=== PATIENT | male | born 1955 | race Caucasian/White ===

== ENCOUNTER 2017-04-01 13:18 | Emergency (ER) | payer MEDICARE ==
[2017-04-01 14:20] LABS: BASOPHILS # (AUTO) 0.1 10^3/uL (0.0-0.1); BASOPHILS % (AUTO) 0.5 %; EOSINOPHILS # (AUTO) 0.1 10^3/uL (0.0-0.7); EOSINOPHILS % (AUTO) 0.6 %; HCT - HEMATOCRIT 50.7 % (42.0-52.0); HGB - HEMOGLOBIN 17.2 g/dL (14.0-18.0); LYMPHOCYTES % (AUTO) 25.5 %; MEAN CORPUSCULAR HEMOGLOBIN 31.4 pg (27.0-31.0); MEAN CORPUSCULAR HGB CONC 33.9 g/dL (32.0-36.0); MEAN CORPUSCULAR VOLUME 92.7 fL (80.0-94.0); MEAN PLATELET VOLUME 10.1 fL (7.4-11.4); MONOCYTES # (AUTO) 0.7 10^3/uL (0.0-1.0); MONOCYTES % (AUTO) 5.7 %; NEUTROPHILS # (AUTO) 7.9 10^3/uL (1.5-6.6); NEUTROPHILS % (AUTO) 67.7 %; RED BLOOD COUNT 5.47 10^6/uL (4.70-6.10); RED CELL DISTRIBUTION WIDTH 15.2 % (12.0-15.0); UNCORRECTED WHITE BLOOD COUNT 11.6 x10^3/uL; WHITE BLOOD COUNT 11.6 x10^3/uL (4.8-10.8)
[2017-04-01] MEDS ORDERED: SODIUM CHLORIDE 0.9% 1,000 ML IV ONE (14:20)
[2017-04-01 14:30] LABS: ALBUMIN/GLOBULIN RATIO 1.4 (1.0-2.2); BILIRUBIN,TOTAL 0.6 mg/dL (0.2-1.0); CALCIUM 9.6 mg/dL (8.5-10.3); CREATININE 1.1 mg/dL (0.6-1.2); POTASSIUM 3.4 mmol/L (3.5-5.0); TOTAL PROTEIN 7.6 g/dL (6.7-8.2)
--- NOTE | 2017-04-01 14:31 | ED Physician Documentation ---
PD HPI CHEST PAIN - Stated complaint Stated Complaint: LIGHTHEAD - Chief complaint Chief Complaint: Cardiac - History obtained from History obtained from: Patient - History of Present Illness Timing - onset: Enter time (929), Today Timing - onset during: Other (after viagra and becoming armoruos) Timing - details: Abrupt onset, Now resolved Pain level max: 5 Pain level now: 0 Quality: Tightness, Sharp Location: Substernal, Left chest Radiation: Neck, Left upper extremity Improved by: No: Rest Associated symptoms: Shortness of air, Feeling faint / dizzy. No: Diaphoresis, Nausea, Vomiting Similar symptoms before: Has not had sx before Recently seen: Not recently seen - Additional information Additional information: 62-year-old male with a history of low testosterone started a new job in [place]. 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 He drove back home from [place] yesterday in a snowstorm and when he arrived at home today he took some Viagra and was about to get amorous with his when he developed some pain in his left chest radiating up into his neck and down his left arm. This episode lasted about 3 hours. He reports that he has been on the road for the last 20 hours [address] [employer]. Review of Systems Constitutional: denies: Fever, Chills, Myalgias, Fatigue Eyes: denies: Decreased vision Ears: reports: Loss of hearing. denies: Ear pain Nose: denies: Rhinorrhea / runny nose, Congestion Throat: denies: Sore throat Cardiac: reports: Chest pain / pressure. denies: Palpitations, Pedal edema, Calf pain Respiratory: reports: Dyspnea. denies: Cough, Wheezing GI: denies: Abdominal Pain, Nausea, Vomiting : denies: Dysuria, Frequency Skin: denies: Rash, Lesions Musculoskeletal: reports: Neck pain, Extremity pain. denies: Back pain, Joint pain Neurologic: denies: Generalized weakness, Focal weakness, Numbness PD PAST MEDICAL HISTORY - Past Medical History Cardiovascular: Hypertension, Angina, Murmur Respiratory: None Endocrine/Autoimmune: None GI: GERD, Hiatal hernia : None HEENT: Chronic hearing loss Psych: None Musculoskeletal: Osteoarthritis, Chronic back pain Derm: None - Past Surgical History Past Surgical History: Yes General: Colonoscopy Ortho: Knee replacement, Arthroscopic surgery, Spine surgery HEENT: Rhinoplasty - Present Medications Home Medications: Ambulatory Orders Medication Instructions Recorded Confirmed Acetaminophen [Tylenol] 325 mg PO Q6H PRN 10/17/12 10/24/14 Amlodipine Besylate 10 mg PO DAILY 10/17/12 10/24/14 Baclofen 10 mg PO BID 10/17/12 10/24/14 Cholecalciferol (Vitamin D3) 2,000 unit PO DAILY 10/17/12 10/24/14 [Vitamin D] Cholestyramine [Questran] 4 gm PO DAILY 10/17/12 10/24/14 Glucosamine HCl/Chondr Martins A Na 2 each PO DAILY 10/17/12 10/24/14 [Osteo Bi-Flex Caplet] Metoprolol Succinate [Toprol Xl] 25 mg PO BID 10/17/12 10/24/14 Omeprazole [PriLOSEC] 20 mg PO BID 10/17/12 10/24/14 Pravastatin Sodium [Pravachol] 40 mg PO DAILY 10/17/12 10/24/14 Tadalafil [Cialis] 5 mg PO DAILY 10/17/12 10/24/14 Temazepam 15 mg PO QPM PRN 10/17/12 10/24/14 oxyCODONE [Roxicodone] 15 mg PO Q4-6H PRN 10/17/12 10/24/14 Ibuprofen 800 mg PO TID 10/21/12 10/24/14 - Allergies Allergies/Adverse Reactions: Allergies Allergy/AdvReac Type Severity Reaction Status Date / Time ethyl alcohol Allergy Intermediate angry Verified 10/24/14 23:09 hydromorphone HCl * Allergy Intermediate violent Verified 10/24/14 23:09 [From Dilaudid] meperidine HCl * Allergy Intermediate angry Verified 10/24/14 23:09 [From Demerol] propoxyphene HCl * Allergy Intermediate angry Verified 10/24/14 23:09 [From Darvon] naproxen Allergy Unknown unknown Verified 10/24/14 23:09 - Social History Does the pt smoke?: No Smoking Status: Never smoker Does the pt drink ETOH?: Yes Does the pt have substance abuse?: No - Immunizations Immunizations are current?: No - POLST Patient has POLST: No PD ED PE NORMAL - Vitals Vital signs reviewed: Yes (hypesrtensive ) - General General: Alert and oriented X 3, No acute distress, Well developed/nourished, Other (62 y/o male appears physically fit and is hard of hearing ) - Neck Neck: Supple, no meningeal sign, No bony TTP - Cardiac Cardiac: RRR, Other (2/6 holosystolic murmer at LSB) - Respiratory Respiratory: No respiratory distress, Clear bilaterally - Abdomen Abdomen: Soft, Non tender - Back Back: No CVA TTP, No spinal TTP - Derm Derm: Normal color, Warm and dry, No rash - Extremities Extremities: No deformity - Neuro Neuro: Alert and oriented X 3, No motor deficit, No sensory deficit, Normal speech Eye Opening: Spontaneous Motor: Obeys Commands Verbal: Oriented GCS Score: 15 - Psych Psych: Normal mood, Normal affect Results - Vitals Vitals: Vital Signs - 24 hr 04/01/17 04/01/17 04/01/17 13:24 13:43 16:13 Temperature 37.2 C 36.9 C Heart Rate 83 84 62 Respiratory 20 20 18 Rate Blood Pressure 184/160 H 154/92 H 141/101 H O2 Saturation 97 96 96 Oxygen O2 Source Room air - EKG (time done) 1334 Rate: Rate (enter#) (77) Rhythm: NSR, LAE Ischemia: Q waves Compare to prior EKG: Unchanged from prior EKG (06-17-2013) Computer interpretation: Agree with computer - Labs Labs: Laboratory Tests 04/01/17 04/01/17 04/01/17 13:30 13:30 13:30 WBC 11.6 H RBC 5.47 Hgb 17.2 Hct 50.7 MCV 92.7 MCH 31.4 H MCHC 33.9 RDW 15.2 H Plt Count 271 MPV 10.1 Neut # 7.9 H Lymph # 3.0 [place] # 0.7 Eos # 0.1 Baso # 0.1 Absolute Nucleated RBC 0.00 Nucleated RBC % 0.0 D-Dimer Sodium 138 Potassium 3.4 L Chloride 103 Carbon Dioxide 24 Anion Gap 11.0 BUN 15 Creatinine 1.1 Estimated GFR (MDRD) 68 L Glucose 160 H Calcium 9.6 Total Bilirubin 0.6 AST 24 ALT 17 Alkaline Phosphatase 71 Troponin I < 0.04 Total Protein 7.6 Albumin 4.4 Globulin 3.2 Albumin/Globulin Ratio 1.4 Lipase 58 H 04/01/17 04/01/17 13:30 15:56 WBC RBC Hgb Hct MCV MCH MCHC RDW Plt Count MPV Neut # Lymph # [place] # Eos # Baso # Absolute Nucleated RBC Nucleated RBC % D-Dimer 253.6 Sodium Potassium Chloride Carbon Dioxide Anion Gap BUN Creatinine Estimated GFR (MDRD) Glucose Calcium Total Bilirubin AST ALT Alkaline Phosphatase Troponin I < 0.04 Total Protein Albumin Globulin Albumin/Globulin Ratio Lipase - Rads (name of study) 1 view chest Radiology: Prelim report reviewed (Impression: 1. No acute pneumonia or edema. 2. 8 mm nodule projecting lateral to the left hilum may reflect a nodule or vessel on end, recommend follow-up PA and lateral chest radiograph.), EMP read indepedently, See rad report Procedures - IVC sono (time) 1410 Bedside IVC sono: IVC measures (cm) (0.9), IVC collapsed c insp (cm) (complete) , Dehydration (aobut 1.5 liters down) PD MEDICAL DECISION MAKING - ED course Complexity details: reviewed old records, reviewed results, re-evaluated patient , considered differential, d/w patient, d/w family ED course: 62 y/o male with chest pain that is now resolved has had some cialis today and was dehydrated when he took this. He had symptoms of chest pain consistent with angina and this has now resolved. Fluid is replaced and enzymes are checked. His EKG today without symptoms is similar to a prior from 3 years ago. Departure - Departure Disposition: 01 Home, Self Care Clinical Impression: Angina pectoris without myocardial infarction, Dehydration Condition: Stable Instructions: ED Chest Pain Angina Stable, ED Dehydration Follow-Up: Terrence Anguiano MD [Primary Care Provider] - Comments: Today it appears your significantly dehydrated. Combination of the dehydration and use of the Viagra is contraindicated. Discharge Date/Time: 04/01/17 16:42
--- NOTE | 2017-04-01 14:48 | XRAY Preliminary Report ---
Exam: XR CHEST 1 VIEW IMPRESSION: 1. No acute pneumonia or edema. 2. 8 mm nodule projecting lateral to the left hilum may reflect a nodule or vessel on end, recommend follow-up PA and lateral chest radiograph. [facility] SITE ID: [id number]
--- NOTE | 2017-04-01 14:51 | XRAY Report ---
EXAM: CHEST RADIOGRAPHY EXAM DATE: 04/01/2017 02:28 PM. CLINICAL HISTORY: Chest pain. COMPARISON: None. TECHNIQUE: 1 view. FINDINGS: Lungs/Pleura: No consolidative process or focal pneumonia. There is a round 8 mm density projecting l ateral to the left hilum on the frontal radiograph. Mediastinum: The heart size is normal. There is mild aortic tortuosity. Other: None. IMPRESSION: 1. No acute pneumonia or edema. 2. 8 mm nodule projecting lateral to the left hilum may reflect a nodule or vessel on end, recommend follow-up PA and lateral chest radiograph. [facility] Referring Provider Line: [phone] SITE ID: [id number]
[2017-04-01 16:14] VITALS: BP 141/101
== END 2017-04-01 16:42 | disposition home or self-care (01) ==
LOC: ED 13:18
DX: I20.9 Angina pectoris, unspecified (principal); E86.0 Dehydration; R94.31 Abnormal electrocardiogram [ECG] [EKG]; I10 Essential (primary) hypertension; Z96.659 Presence of unspecified artificial knee joint
CPT/HCPCS: 36415; 71010; 80053; 83690; 84484; 85025; 85379; 93005; 96360; 99283; 99285

== ENCOUNTER 2017-04-04 15:14 | Outpatient (CLI) | payer MEDICARE ==
--- NOTE | 2017-04-05 19:45 | XRAY Report ---
DATE OF SERVICE: 04/04/2017 TWO-VIEW CHEST: 04/04/2017 CLINICAL INDICATION: Exertional chest pain, possible pulmonary nodule on ER film of 04/01/2017. FINDINGS: Frontal and lateral views of the chest demonstrate a normal cardiac silhouette. The circu mscribed 8 mm nodule adjacent to the left hilum is stable, and can be visualized in retrospect on thoracic spi ne films of 03/14/2008. As such, it is dismissably benign. No focal infiltrate, effusion, or pneumothorax is present. There may be a small hiatal hernia present. IMPRESSION: Circumscribed 8 mm nodule adjacent to the left hilum is stable from 2007, and may be con sidered benign. No evidence of acute cardiopulmonary disease. TD: 04/05/2017 09:57
== END 2017-04-04 15:15 | disposition home or self-care (01) ==
LOC: DI 15:14
PROVIDERS: ATTEND Family Medicine
DX: R91.1 Solitary pulmonary nodule (principal)
CPT/HCPCS: 71020

== ENCOUNTER 2017-04-19 10:59 | Outpatient (CLI) | payer MEDICARE, OTHER ==
--- NOTE | 2017-04-19 12:50 | CARDIAC PROCEDURE NOTE ---
DATE OF SERVICE: 04/19/2017 Physician: YSLVIA Andrews DATE OF SERVICE: 04/19/2017 PRIMARY CARE PHYSICIAN: Terrence Anguiano MD PROCEDURE: Cardiac treadmill stress test. PROCEDURE SYMPTOMS: Exertional chest pain. CARDIAC RISK FACTORS: Include age and hypertension. PREVIOUS CARDIAC PROCEDURES: No previous cardiac procedures. CLINICAL HISTORY: A 62-year-old male without known coronary artery disease. INITIAL RESTING VITAL SIGNS: Blood pressure 126/72, heart rate 65, height 69 inches, weight 200 pounds, BMI 29.5. PROCEDURE AND FINDINGS: The patient identity and date verified, consent signed. The patient held metoprolol with the last dose on 04/18/2017 in the morning. The patient performed treadmill exercise using a Adolfo protocol completing 9 minutes, 48 seconds and completing an estimated workload of 10.1 metabolic equivalents. Maximal blood pressure was 162/72 with a heart rate of 105 beats per minute or 66% of maximum predicted heart rate for age. The blood pressure response to exercise was within normal limits. The patient stopped because his titanium knee was locking up, and he estimated the maximal Florencio scale for rating perceived exertion as 16/20. The resting ECG demonstrated normal sinus rhythm with repolarization abnormality. There was no ST segment depression. There was a single PAC. FINAL IMPRESSIONS 1. Inadequate test due to failure to achieve 75% of maximum predicted heart rate for age. 2. Negative stress electrocardiogram for ischemia by electrocardiographic criteria. 3. Negative stress test clinically for angina. 4. Single PAC ectopy. 5. [place] [employer] functional class 1. TD: 04/19/2017 13:49
[2017-04-19 17:34] VITALS: BP 126/72
== END 2017-04-19 11:00 | disposition home or self-care (01) ==
LOC: DI 10:59
PROVIDERS: ATTEND Family Medicine
DX: R07.9 Chest pain, unspecified (principal); I10 Essential (primary) hypertension
CPT/HCPCS: 93017

== ENCOUNTER 2018-07-05 09:05 | Outpatient (CLI) | payer MEDICARE ==
[~2018-07-05 09:05] MED LIST: ALBUTEROL NEB 2.5 MG/3 ML INH ONE
--- NOTE | 2018-07-05 14:12 | XRAY Report ---
Reason: HEAVY SMOKER, RECENT ONSET OF DYSPNEA COUGH Procedure Date: 07/05/2018 Accession Number: [id number] / [id number] Procedure: XR - Chest 2 View X-Ray CPT Code: 96479 FULL RESULT: EXAM: CHEST RADIOGRAPHY EXAM DATE: 07/05/2018 09:10 AM. CLINICAL HISTORY: HEAVY SMOKER, RECENT ONSET OF DYSPNEA COUGH. COMPARISON: CHEST 2 VIEW PA/LAT 04/04/2017 3:50 PM XR THORACIC SPINE 3 VIEWS 03/14/2008 12:12 PM CHEST 1 VIEW 04/01/2017 2:19 PM. TECHNIQUE: 2 views. FINDINGS: Lungs/Pleura: No dense consolidation. No large effusion or pneumothorax. No pulmonary edema. Stable 8 mm nodular density adjacent to the left hilum, also present on 03/14/2008. Mediastinum: Heart and mediastinal contours are unremarkable. Other: None. IMPRESSION: No acute radiographic pulmonary abnormalities. [facility]
== END 2018-07-05 09:06 | disposition home or self-care (01) ==
LOC: DI 09:05
PROVIDERS: ATTEND Family Medicine
DX: R05 Cough (principal); R06.00 Dyspnea, unspecified; Z87.891 Personal history of nicotine dependence
CPT/HCPCS: 71046; 94060

== ENCOUNTER 2019-10-16 17:59 | Outpatient (CLI) | payer MEDICARE ==
[2019-10-16 20:25] LABS: ALBUMIN 4.4 g/dL (3.2-5.5); ALKALINE PHOSPHATASE 65 IU/L (42-121); ALT ALANINE AMINOTRANSFERASE 23 IU/L (10-60); AST ASPARTATE AMINOTRANSFERASE 20 IU/L (10-42); BUN - BLOOD UREA NITROGEN 19 mg/dL (6-20); CARBON DIOXIDE - CO2 27 mmol/L (21-32); CHLORIDE 103 mmol/L (101-111); CHOL/HDL RATIO 5.1 (<5.0); CHOLESTEROL 175 mg/dL; CREATININE 0.9 mg/dL (0.6-1.2); GLUCOSE 102 mg/dL (70-100); HDL CHOLESTEROL 34 mg/dL; LDL CHOLESTEROL,CALCULATED 117 mg/dL; LDL/HDL RATIO 3.4 (<3.6); SODIUM 137 mmol/L (135-145); TOTAL PROTEIN 6.6 g/dL (6.7-8.2); VLDL CHOLESTEROL 24 mg/dL
== END 2019-10-16 18:00 | disposition home or self-care (01) ==
LOC: LAB.S 17:59
PROVIDERS: ATTEND Family Medicine
DX: R68.89 Other general symptoms and signs (principal); I10 Essential (primary) hypertension
CPT/HCPCS: 36415; 80053; 80061; 83721; 84403

== ENCOUNTER 2020-02-26 19:56 | Emergency (ER) | payer MEDICARE ==
[2020-02-26] MEDS ORDERED: SODIUM CHLORIDE 0.9% 1,000 ML IV STA (20:28)
[2020-02-26] MEDS ORDERED: ONDANSETRON 4 MG/2 ML VIAL IVP STA (20:29)
[2020-02-26] MEDS ORDERED: ACETAMINOPHEN 325 MG TABLET PO STA (20:30)
--- NOTE | 2020-02-26 20:46 | ED Physician Documentation ---
History of Present Illness - Stated complaint Stated Complaint: FEVER,BODY PX - Chief complaint Chief Complaint: General - History obtained from History obtained from: Patient - Additonal information Additional information: 64-year-old man not on AC, with past medical history of osteoarthritis, high blood pressure, presents with generalized body aches for 2 days associated with weakness and moderate severity bifrontal headache that is nonradiating, gradually starting today, constant, aching. Patient fell down two stairs yesterday and hit his head secondary to weakness. He denies lightheadedness, chest pain, cough sob vomiting abd pain or diarrhea. Does have moderate severity nausea and subjective chills. States he feels like he has the flu. Review of Systems Ten Systems: 10 systems reviewed and negative Constitutional: reports: Fever, Chills, Myalgias, Fatigue Nose: denies: Rhinorrhea / runny nose, Congestion Throat: denies: Sore throat Cardiac: denies: Chest pain / pressure, Palpitations Respiratory: denies: Cough, Wheezing PD PAST MEDICAL HISTORY - Past Medical History Past Medical History: Yes Cardiovascular: Hypertension, Angina, Murmur Respiratory: None Endocrine/Autoimmune: None GI: GERD, Hiatal hernia : None HEENT: Chronic hearing loss Psych: None Musculoskeletal: Osteoarthritis, Chronic back pain Derm: None - Past Surgical History Past Surgical History: Yes General: Colonoscopy Ortho: Knee replacement, Arthroscopic surgery, Spine surgery, Other HEENT: Rhinoplasty - Present Medications Home Medications: Ambulatory Orders Medication Instructions Recorded Confirmed Acetaminophen [Tylenol] 325 mg PO Q6H PRN 10/17/12 10/24/14 Amlodipine Besylate 10 mg PO DAILY 10/17/12 10/24/14 Baclofen 10 mg PO BID 10/17/12 10/24/14 Cholecalciferol (Vitamin D3) 2,000 unit PO DAILY 10/17/12 10/24/14 [Vitamin D] Cholestyramine [Questran] 4 gm PO DAILY 10/17/12 10/24/14 Glucosamine/Chondr Martins A Sod [Osteo 2 each PO DAILY 10/17/12 10/24/14 Bi-Flex Caplet] Metoprolol Succinate [Toprol Xl] 25 mg PO BID 10/17/12 10/24/14 Omeprazole [PriLOSEC] 20 mg PO BID 10/17/12 10/24/14 Pravastatin Sodium [Pravachol] 40 mg PO DAILY 10/17/12 10/24/14 Tadalafil [Cialis] 5 mg PO DAILY 10/17/12 10/24/14 Temazepam 15 mg PO QPM PRN 10/17/12 10/24/14 oxyCODONE [Roxicodone] 15 mg PO Q4-6H PRN 10/17/12 10/24/14 Ibuprofen 800 mg PO TID 10/21/12 10/24/14 - Allergies Allergies/Adverse Reactions: Allergies Allergy/AdvReac Type Severity Reaction Status Date / Time ethyl alcohol Allergy Intermediate angry Verified 02/26/20 20:06 hydromorphone HCl * Allergy Intermediate violent Verified 02/26/20 20:06 [From Dilaudid] meperidine HCl * Allergy Intermediate angry Verified 02/26/20 20:06 [From Demerol] propoxyphene HCl * Allergy Intermediate angry Verified 02/26/20 20:06 [From Darvon] naproxen Allergy Unknown unknown Verified 02/26/20 20:06 - Social History Does the pt smoke?: No Smoking Status: Never smoker Does the pt drink ETOH?: Yes Does the pt have substance abuse?: No - Immunizations Immunizations are current?: No - POLST Patient has POLST: No PD ED PE NORMAL - Vitals Vital signs reviewed: Yes - General General: Alert and oriented X 3 - HEENT HEENT: Atraumatic, PERRL, EOMI - Neck Neck: No bony TTP - Cardiac Cardiac: RRR - Respiratory Respiratory: No respiratory distress, Clear bilaterally - Abdomen Abdomen: Normal bowel sounds, Non tender, Non distended - Male Male : Deferred - Rectal Rectal: Deferred - Back Back: No CVA TTP - Derm Derm: Normal color - Extremities Extremities: No deformity - Neuro Neuro: Alert and oriented X 3, director athletic 2-12 intact, No motor deficit, No sensory deficit, Normal speech, Other (ambulatory with shuffling gait) - Psych Psych: Normal mood, Normal affect Results - Vitals Vitals: Vital Signs - 24 hr 02/26/20 02/26/20 02/26/20 20:06 20:09 22:11 Temperature 36.6 C 36.6 C Heart Rate 78 78 55 L Respiratory 20 20 17 Rate Blood Pressure 150/103 H 150/103 H 156/87 H O2 Saturation 98 98 96 Oxygen O2 Source Room air - Labs Labs: Laboratory Tests 02/26/20 02/26/20 20:59 20:59 WBC 14.3 H RBC 4.59 L Hgb 15.0 Hct 43.2 MCV 94.1 H MCH 32.7 H MCHC 34.7 RDW 13.8 Plt Count 250 MPV 10.7 Neut # (Auto) 12.0 H Lymph # (Auto) 1.3 L [place] # (Auto) 0.8 Eos # (Auto) 0.0 Baso # (Auto) 0.0 Absolute Nucleated RBC 0.00 Nucleated RBC % 0.0 Sodium 136 Potassium 3.2 L Chloride 102 Carbon Dioxide 26 Anion Gap 8.0 BUN 18 Creatinine 0.8 Estimated GFR (MDRD) 97 Glucose 139 H Calcium 9.2 Total Bilirubin 0.8 AST 37 ALT 23 Alkaline Phosphatase 76 Total Protein 7.2 Albumin 4.2 Globulin 3.0 Albumin/Globulin Ratio 1.4 Lipase 20 L PD MEDICAL DECISION MAKING - ED course Complexity details: reviewed results, d/w patient, d/w family ED course: 64-year-old man presents status post fall yesterday reporting that he has been having difficulty walking for the past 2 days. Also with frontal headache, found to have subarachnoid hemorrhage on CT head. Discussed with Dr. Toribio Guzman, neurosurgeon at [facility].Plan to maintain patient SBP 120, give Keppra, and transfer via air per his recommendation. Patient aware and agreeable, and discussed with patient's brother in law Dorian Webb as well as son Naveen. - Critical Care Time(min): 30 Comments: I have personally performed a history, physical exam, and my own medical decision making. Upon my evaluation, this patient had a high probability of imminent or life- threatening deterioration due to subarachnoid hemorrhage, which required my direct attention, intervention, and personal management. I have personally provided 30 minutes of critical care time exclusive of time spent on separately billable procedures. Time includes review of laboratory data, radiology results, discussion with consultants, and monitoring for potential decompensation. Time Includes: Direct patient care, Reassess patient Data interpretation: Labs, Pulse ox Departure - Departure Disposition: 02 Transfer Acute Care Hosp Clinical Impression: Subarachnoid bleed, Headache, Head trauma, Fall (on) (from) other stairs and steps, initial encounter Condition: Stable
--- NOTE | 2020-02-26 20:57 | CT Report ---
PROCEDURE: HEAD WO INDICATIONS: headache, fall yesterday, unsteady gait TECHNIQUE: Noncontrast 4.5 mm thick angled axial sections acquired from the foramen magnum to the vertex. For r adiation dose reduction, the following was used: automated exposure control, adjustment of mA and/or kV according to patient size. COMPARISON: None. FINDINGS: Image quality: Excellent. CSF spaces: Basal cisterns are patent. No extra-axial fluid collections. Ventricles are normal in size and shape. Brain: Moderate volume subarachnoid hemorrhage within the subarachnoid spaces of both frontal lobes predominantly. No mass effect or midline shift. No CT evidence of acute intracranial infarct or signi ficant vasogenic edema. Skull and face: Calvarium and visualized facial bones are intact, without suspicious lesions. Sinuses: Visualized sinuses and mastoids are clear. IMPRESSION: Moderate volume subarachnoid hemorrhage within the subarachnoid spaces of both frontal l obes predominantly. Given the diffuse nature of the hemorrhage, trauma is the leading consideration. Findings are discussed with the Dr. Honeycutt at 8:55 PM on 02/26/2020. Reviewed by: Sheldon Ellis MD on 02/26/2020 8:56 PM PST Approved by: Sheldon Ellis MD on 02/26/2020 8:56 PM PST Station ID: [id number]
--- NOTE | 2020-02-26 21:02 | CT Report ---
PROCEDURE: CERVICAL SPINE WO INDICATIONS: Neck trauma, midline tenderness TECHNIQUE: Noncontrast 3 mm thick sections acquired from the skull base to the T4 level. Sagittal and coronal r eformats were then constructed. For radiation dose reduction, the following was used: automated exp osure control, adjustment of mA and/or kV according to patient size. COMPARISON: None. FINDINGS: Image quality: Excellent. Bones: Well-corticated ossific densities just overlying the C5, C6, and C7 spinous processes, likely remote avulsion fractures (jody trauma therapist's fracture) or ossification is interspinous ligament. No as sociated hemorrhage or edema. The fractures appear smoothly marginated and well corticated, not thoug ht to be acute in nature. Otherwise no fracture or dislocation. Extensive degenerative change. Visual ized superior ribs are intact. Soft tissues: Prevertebral soft tissues are normal in thickness. No paravertebral hematomas. No ap ical pneumothoraces. IMPRESSION: Well-corticated ossific densities at the tips of the spinous processes at C5, C6, C7, likely remote f racture fragments or more likely ossification of the supraspinous ligament. An acute avulsion fractur e cannot be strictly excluded, although is considered unlikely. An MRI would be useful in this regard if there is focal point tenderness or pain with either passive flexion or resistance to extension. Reviewed by: Sheldon Ellis MD on 02/26/2020 9:00 PM [facility] Approved by: Sheldon Ellis MD on 02/26/2020 9:00 PM [facility] Station ID: [id number]
[2020-02-26 21:03] LABS: BASOPHILS % (AUTO) 0.3 %; EOSINOPHILS % (AUTO) 0.3 %; LYMPHOCYTES # (AUTO) 1.3 10^3/uL (1.5-3.5); LYMPHOCYTES % (AUTO) 9.3 %; MEAN CORPUSCULAR HEMOGLOBIN 32.7 pg (27.0-31.0); MEAN CORPUSCULAR HGB CONC 34.7 g/dL (32.0-36.0); MEAN CORPUSCULAR VOLUME 94.1 fL (80.0-94.0); MEAN PLATELET VOLUME 10.7 fL (7.4-11.4); MONOCYTES # (AUTO) 0.8 10^3/uL (0.0-1.0); MONOCYTES % (AUTO) 5.8 %; NEUTROPHILS % (AUTO) 83.7 %; PLT - PLATELET COUNT 250 10^3/uL (130-450); RED BLOOD COUNT 4.59 10^6/uL (4.70-6.10); RED CELL DISTRIBUTION WIDTH 13.8 % (12.0-15.0); WHITE BLOOD COUNT 14.3 x10^3/uL (4.8-10.8)
[2020-02-26 21:17] LABS: ALBUMIN 4.2 g/dL (3.2-5.5); ALBUMIN/GLOBULIN RATIO 1.4 (1.0-2.2); BILIRUBIN,TOTAL 0.8 mg/dL (0.2-1.0); CALCIUM 9.2 mg/dL (8.5-10.3); CREATININE 0.8 mg/dL (0.6-1.2); TOTAL PROTEIN 7.2 g/dL (6.7-8.2)
[2020-02-26] MEDS ORDERED: NICARDIPINE HCL 25 MG in SODIUM CHLORIDE 0.9% 240 ML IV STA (21:32)
[2020-02-26] MEDS ORDERED: levETIRAcetam INJ 1,000 MG in SODIUM CHLORIDE 0.9% 100ML 100 ML IV STA (21:37)
[2020-02-26] MEDS ORDERED: NICARDIPINE HCL 25 MG/10 ML VIAL IV ONE (21:55)
[2020-02-26 22:12] VITALS: BP 156/87
[2020-02-26 22:22] LABS: C. PNEUMONIAE- RESP PCR PANEL NOT DETECTED
== END 2020-02-26 22:30 | disposition short-term general hospital (02) ==
LOC: ED 19:56
DX: I60.9 Nontraumatic subarachnoid hemorrhage, unspecified (principal); W10.9XXA Fall (on) (from) unspecified stairs and steps, initial encounter; I10 Essential (primary) hypertension
CPT/HCPCS: 36415; 70450; 72125; 80053; 83690; 85025; 87631; 96365; 96375; 99291; A9270; 0202U

== ENCOUNTER 2020-05-15 17:53 | Observation (INO) | payer MEDICARE ==
--- NOTE | 2020-05-15 18:36 | ED Physician Documentation ---
PD HPI ALTERED MENTAL STATUS - Stated complaint Stated Complaint: EVALUATION - Chief complaint Chief Complaint: Neuro - History obtained from History obtained from: Patient, Family - Additional information Additional information: 65-year-old gentleman brought in by his [id number]. He had a prolonged length of stay at [facility], went there on or about February 16 for a ruptured 10 mm aneurysm. He had a craniotomy and repair and was there until 4 days ago. He was released but has not been doing well. Much of the history is from the brother because the patient is confused. They have been having questions about what meds he supposed to be on they think he is taking most of them but there was confusion about valproic acid, he has not been receiving that because on the pill bottle that actually says divalproex, the patient is difficult to get a history from because he is deaf and altered. He was alert and oriented to person only. Review of Systems Unable to obtain: Confused PD PAST MEDICAL HISTORY - Past Medical History Cardiovascular: Hypertension, Angina, Murmur Respiratory: None Endocrine/Autoimmune: None GI: GERD, Hiatal hernia : None HEENT: Chronic hearing loss Psych: None Musculoskeletal: Osteoarthritis, Chronic back pain Derm: None - Past Surgical History Past Surgical History: Yes General: Colonoscopy Ortho: Knee replacement, Arthroscopic surgery, Spine surgery, Other HEENT: Rhinoplasty - Present Medications Home Medications: Ambulatory Orders Medication Instructions Recorded Confirmed Acetaminophen [Tylenol] 325 mg PO Q6H PRN 10/17/12 05/15/20 Baclofen 5 mg PO BID 10/17/12 05/15/20 Omeprazole [PriLOSEC] 20 mg PO BID 10/17/12 05/15/20 oxyCODONE [Roxicodone] 5 mg PO Q4-6H PRN 10/17/12 05/15/20 Aspirin [Aspirin EC] 81 mg PO DAILY 05/15/20 05/15/20 Gabapentin [Neurontin] 200 mg PO TID 05/15/20 05/15/20 Melatonin 6 mg PO HS 05/15/20 05/15/20 Metoprolol Tartrate [Lopressor] 12.5 mg PO BID 05/15/20 05/15/20 Pravastatin [Pravachol] 40 mg PO DAILY 05/15/20 05/15/20 QUEtiapine [SEROquel] 100 mg PO TID 05/15/20 05/15/20 Senna [Senokot] 17.2 mg PO HS PRN 05/15/20 05/15/20 Valproic Acid 500 mg PO DAILY 05/15/20 05/15/20 bisacodyL [Dulcolax] 5 mg PO DAILY 05/15/20 05/15/20 Diclofenac Sodium [Voltaren] 2 gm TOP BID PRN 05/16/20 05/16/20 - Allergies Allergies/Adverse Reactions: Allergies Allergy/AdvReac Type Severity Reaction Status Date / Time ethyl alcohol Allergy Intermediate angry Verified 02/26/20 20:06 hydromorphone HCl * Allergy Intermediate violent Verified 02/26/20 20:06 [From Dilaudid] meperidine HCl * Allergy Intermediate angry Verified 02/26/20 20:06 [From Demerol] propoxyphene HCl * Allergy Intermediate angry Verified 02/26/20 20:06 [From Darvon] naproxen Allergy Unknown unknown Verified 02/26/20 20:06 morphine Allergy Unknown Verified 05/15/20 18:15 - Social History Does the pt smoke?: No Smoking Status: Never smoker Does the pt drink ETOH?: Yes Does the pt have substance abuse?: No - Immunizations Immunizations are current?: No - POLST Patient has POLST: No PD ED PE NORMAL - Vitals Vital signs reviewed: Yes - General General: Other (He is alert and oriented to person only. He follows commands with miming or by written command with a white board. He cannot come up with the year, the date, or where he is.) - HEENT HEENT: PERRL, EOMI - Neck Neck: Supple, no meningeal sign, No bony TTP - Cardiac Cardiac: RRR, No murmur - Respiratory Respiratory: No respiratory distress, Clear bilaterally - Abdomen Abdomen: Normal bowel sounds, Soft, Non tender, Other (A lot of bruising on the abdomen, presumed from Lovenox injections while in the hospital.) - Back Back: No CVA TTP, No spinal TTP - Derm Derm: Normal color, Warm and dry - Extremities Extremities: No edema, No calf tenderness / cord - Neuro Neuro: No motor deficit, No sensory deficit, Normal speech, Other (Mildly tremulous but not overtly with asterixis or ataxia. No nystagmus.) Eye Opening: Spontaneous Motor: Obeys Commands Verbal: Confused GCS Score: 14 Results - Vitals Vitals: Vital Signs - 24 hr 05/15/20 05/15/20 05/15/20 18:10 18:14 20:14 Temperature 36.8 C 36.6 C Heart Rate 99 75 68 Respiratory 18 17 15 Rate Blood Pressure 142/87 H 142/87 H 109/72 O2 Saturation 99 97 99 05/15/20 22:00 Temperature 36.9 C Heart Rate 78 Respiratory 16 Rate Blood Pressure 121/77 O2 Saturation 95 Oxygen O2 Source Room air - EKG (time done) 1839 Rate: Rate (enter#) (71) Rhythm: NSR [place]: Normal Intervals: Normal [place] QRS: Normal Ischemia: Normal ST segments Computer interpretation: Agree with computer - Labs Labs: Laboratory Tests 05/15/20 05/15/20 05/15/20 09:19 19:05 19:05 WBC 7.3 RBC 3.93 L Hgb 12.6 L Hct 38.1 L MCV 96.9 H MCH 32.1 H MCHC 33.1 RDW 12.1 Plt Count 218 MPV 11.2 Neut # (Auto) 5.2 Lymph # (Auto) 1.5 [place] # (Auto) 0.5 Eos # (Auto) 0.1 Baso # (Auto) 0.0 Absolute Nucleated RBC 0.00 Nucleated RBC % 0.0 PT 13.8 H INR 1.3 H Sodium Potassium Chloride Carbon Dioxide Anion Gap BUN Creatinine Estimated GFR (MDRD) Glucose POC Whole Bld Glucose Calcium Phosphorus Magnesium Total Bilirubin AST ALT Alkaline Phosphatase Ammonia Total Protein Albumin Globulin Albumin/Globulin Ratio Urine Color Urine Clarity Urine pH Ur Specific [place] Urine Protein Urine Glucose (UA) Urine Ketones Urine Occult Blood Urine Nitrite Urine Bilirubin Urine Urobilinogen Ur Leukocyte Esterase Urine RBC Urine WBC Ur Squamous Epith Cells Urine Crystals Urine Bacteria Urine Culture Comments Nasal Adenovirus (PCR) Nasal B. parapertussis DNA (PCR) Nasal Coronavir 229E PCR Nasal Coronavir HKU1 PCR Nasal Coronavir NL63 PCR Nasal Coronavir OC43 PCR Nasal Enterovir/Rhinovir PCR Nasal Influenza B PCR Nasal Influenza A PCR Nasal Parainfluen 1 PCR Nasal Parainfluen 2 PCR Nasal Parainfluen 3 PCR Nasal Parainfluen 4 PCR Nasal RSV (PCR) Nasal B.pertussis DNA PCR Nasal C.pneumoniae (PCR) Bull Human Metapneumo PCR Nasal M.pneumoniae (PCR) Nasal SARS-CoV-2 (PCR) Urine Opiates Screen NEGATIVE Ur Oxycodone Screen POSITIVE H Urine Methadone Screen NEGATIVE Ur Propoxyphene Screen NEGATIVE Ur Barbiturates Screen NEGATIVE Valproic Acid Ur Tricyclics Screen POSITIVE H Ur Phencyclidine Scrn NEGATIVE Ur Amphetamine Screen NEGATIVE U Methamphetamines Scrn NEGATIVE U Benzodiazepines Scrn NEGATIVE Urine Cocaine Screen NEGATIVE U Cannabinoids Screen NEGATIVE Ethyl Alcohol 05/15/20 05/15/20 05/15/20 19:05 19:05 19:05 WBC RBC Hgb Hct MCV MCH MCHC RDW Plt Count MPV Neut # (Auto) Lymph # (Auto) [place] # (Auto) Eos # (Auto) Baso # (Auto) Absolute Nucleated RBC Nucleated RBC % PT INR Sodium 138 Potassium 4.0 Chloride 99 L Carbon Dioxide 26 Anion Gap 13.0 BUN 17 Creatinine 0.9 Estimated GFR (MDRD) 84 L Glucose 92 POC Whole Bld Glucose Calcium 9.5 Phosphorus 2.7 Magnesium 2.0 Total Bilirubin 1.0 AST 59 H ALT 31 Alkaline Phosphatase 77 Ammonia < 10.0 Total Protein 7.2 Albumin 3.7 Globulin 3.5 Albumin/Globulin Ratio 1.1 Urine Color Urine Clarity Urine pH Ur Specific [place] Urine Protein Urine Glucose (UA) Urine Ketones Urine Occult Blood Urine Nitrite Urine Bilirubin Urine Urobilinogen Ur Leukocyte Esterase Urine RBC Urine WBC Ur Squamous Epith Cells Urine Crystals Urine Bacteria Urine Culture Comments Nasal Adenovirus (PCR) Nasal B. parapertussis DNA (PCR) Nasal Coronavir 229E PCR Nasal Coronavir HKU1 PCR Nasal Coronavir NL63 PCR Nasal Coronavir OC43 PCR Nasal Enterovir/Rhinovir PCR Nasal Influenza B PCR Nasal Influenza A PCR Nasal Parainfluen 1 PCR Nasal Parainfluen 2 PCR Nasal Parainfluen 3 PCR Nasal Parainfluen 4 PCR Nasal RSV (PCR) Nasal B.pertussis DNA PCR Nasal C.pneumoniae (PCR) Bull Human Metapneumo PCR Nasal M.pneumoniae (PCR) Nasal SARS-CoV-2 (PCR) Urine Opiates Screen Ur Oxycodone Screen Urine Methadone Screen Ur Propoxyphene Screen Ur Barbiturates Screen Valproic Acid < 10.0 Ur Tricyclics Screen Ur Phencyclidine Scrn Ur Amphetamine Screen U Methamphetamines Scrn U Benzodiazepines Scrn Urine Cocaine Screen U Cannabinoids Screen Ethyl Alcohol < 5.0 05/15/20 05/15/20 05/15/20 19:05 19:07 19:19 WBC RBC Hgb Hct MCV MCH MCHC RDW Plt Count MPV Neut # (Auto) Lymph # (Auto) [place] # (Auto) Eos # (Auto) Baso # (Auto) Absolute Nucleated RBC Nucleated RBC % PT INR Sodium Potassium Chloride Carbon Dioxide Anion Gap BUN Creatinine Estimated GFR (MDRD) Glucose POC Whole Bld Glucose 77 Calcium Phosphorus Magnesium Total Bilirubin AST ALT Alkaline Phosphatase Ammonia Total Protein Albumin Globulin Albumin/Globulin Ratio Urine Color YELLOW Urine Clarity CLEAR Urine pH 6.0 Ur Specific [place] >=1.030 H Urine Protein NEGATIVE Urine Glucose (UA) NEGATIVE Urine Ketones >=80 H Urine Occult Blood NEGATIVE Urine Nitrite NEGATIVE Urine Bilirubin NEGATIVE Urine Urobilinogen 0.2 (NORMAL) Ur Leukocyte Esterase NEGATIVE Urine RBC None Seen Urine WBC 0-3 Ur Squamous Epith Cells NONE SEEN Urine Crystals 3-5 Triple Phosphate Urine Bacteria None Seen Urine Culture Comments NOT INDICATED Nasal Adenovirus (PCR) NOT DETECTED Nasal B. parapertussis DNA (PCR) NOT DETECTED Nasal Coronavir 229E PCR NOT DETECTED Nasal Coronavir HKU1 PCR NOT DETECTED Nasal Coronavir NL63 PCR NOT DETECTED Nasal Coronavir OC43 PCR NOT DETECTED Nasal Enterovir/Rhinovir PCR NOT DETECTED Nasal Influenza B PCR NOT DETECTED Nasal Influenza A PCR NOT DETECTED Nasal Parainfluen 1 PCR NOT DETECTED Nasal Parainfluen 2 PCR NOT DETECTED Nasal Parainfluen 3 PCR NOT DETECTED Nasal Parainfluen 4 PCR NOT DETECTED Nasal RSV (PCR) NOT DETECTED Nasal B.pertussis DNA PCR NOT DETECTED Nasal C.pneumoniae (PCR) NOT DETECTED Bull Human Metapneumo PCR NOT DETECTED Nasal M.pneumoniae (PCR) NOT DETECTED Nasal SARS-CoV-2 (PCR) NOT DETECTED Urine Opiates Screen Ur Oxycodone Screen Urine Methadone Screen Ur Propoxyphene Screen Ur Barbiturates Screen Valproic Acid Ur Tricyclics Screen Ur Phencyclidine Scrn Ur Amphetamine Screen U Methamphetamines Scrn U Benzodiazepines Scrn Urine Cocaine Screen U Cannabinoids Screen Ethyl Alcohol - Rads (name of study) CT Head Radiology: EMP read contemporaneously (S/P clipping, no hemorrhage, Left frontal extradural foci of gas of uncertain chronicity) 1v chext Radiology: EMP read contemporaneously (hypoareation with poss RLL PNA) PD MEDICAL DECISION MAKING - ED course ED course: Discharge summary from [facility] dated May 12 of this year received and reviewed. Hospital course was complicated by vasospasm and need for pressors, UTI, EVD and craniotomy. He had bifrontal craniotomy and orbital frontal craniotomy with clipping of the aneurysm on February 26. He did have cardiac arrest during the surgery with EVD placement. Subsequently had angioplasty of both MCAs and ICAs. Redo craniotomy on March 12. Had severe delirium and agitation trouble with swallowing. Call out to [facility] to discuss presentation and CT findings. Care ot Dr Honeycutt at shift change pending a call back. Departure - Departure Disposition: ED Place in Observation Clinical Impression: Ruptured aneurysm of intracranial artery, Delirium, Non compliance w medication regimen Altered mental status Qualifiers: Altered mental status type: delirium Qualified Code(s): R41.0 - Disorientation, unspecified Condition: Stable Discharge Date/Time: 05/16/20 00:50
[2020-05-15 19:19] LABS: BASOPHILS % (AUTO) 0.4 %; EOSINOPHILS # (AUTO) 0.1 10^3/uL (0.0-0.7); HGB - HEMOGLOBIN 12.6 g/dL (14.0-18.0); LYMPHOCYTES # (AUTO) 1.5 10^3/uL (1.5-3.5); LYMPHOCYTES % (AUTO) 20.3 %; MEAN CORPUSCULAR HEMOGLOBIN 32.1 pg (27.0-31.0); MEAN CORPUSCULAR HGB CONC 33.1 g/dL (32.0-36.0); MEAN CORPUSCULAR VOLUME 96.9 fL (80.0-94.0); MEAN PLATELET VOLUME 11.2 fL (7.4-11.4); MONOCYTES # (AUTO) 0.5 10^3/uL (0.0-1.0); MONOCYTES % (AUTO) 6.5 %; NEUTROPHILS # (AUTO) 5.2 10^3/uL (1.5-6.6); NEUTROPHILS % (AUTO) 71.4 %; PLT - PLATELET COUNT 218 10^3/uL (130-450); RED BLOOD COUNT 3.93 10^6/uL (4.70-6.10); RED CELL DISTRIBUTION WIDTH 12.1 % (12.0-15.0); WHITE BLOOD COUNT 7.3 x10^3/uL (4.8-10.8)
[2020-05-15 19:24] LABS: MUDS CUTOFF CONCENTRATIONS CUTOFF CONC BELOW:
[2020-05-15 19:28] LABS: INR 1.3 (0.8-1.2); PT - PROTHROMBIN TIME 13.8 secs (9.9-12.6)
[2020-05-15 19:34] LABS: ALBUMIN 3.7 g/dL (3.2-5.5); ALBUMIN/GLOBULIN RATIO 1.1 (1.0-2.2); ALKALINE PHOSPHATASE 77 IU/L (42-121); ALT ALANINE AMINOTRANSFERASE 31 IU/L (10-60); AST ASPARTATE AMINOTRANSFERASE 59 IU/L (10-42); BUN - BLOOD UREA NITROGEN 17 mg/dL (6-20); CALCIUM 9.5 mg/dL (8.5-10.3); CARBON DIOXIDE - CO2 26 mmol/L (21-32); CHLORIDE 99 mmol/L (101-111); CREATININE 0.9 mg/dL (0.6-1.2); GLUCOSE 92 mg/dL (70-100); PHOSPHORUS 2.7 mg/dL (2.5-4.6); TOTAL PROTEIN 7.2 g/dL (6.7-8.2)
--- NOTE | 2020-05-15 19:38 | CT Report ---
PROCEDURE: HEAD WO INDICATIONS: ams TECHNIQUE: Noncontrast 4.5 mm thick angled axial sections acquired from the foramen magnum to the vertex. For r adiation dose reduction, the following was used: automated exposure control, adjustment of mA and/or kV according to patient size. COMPARISON: 02/26/2020 FINDINGS: Image quality: Excellent. CSF spaces: Basal cisterns are patent. Ventricles are normal in size and shape. No intraventricula r hemorrhage. Brain: There is been interval aneurysm clipping of probable anterior cerebral or GÓMEZ aneurysm. With new streak artifact from aneurysm clips present in the bifrontal regions. The bifrontal dural patch i s present and trace amounts of extradural gas are seen. There is encephalomalacia right frontal regio n extending from the right frontal vertex julius hole to the lateral ventricle, potentially drain tract . No midline shift. No intracranial masses or hemorrhage. Figueroa-white matter interface is normal. Skull and face: Bifrontal craniotomy and surgical fixation changes are present. There is a julius hole in the right frontal bone at the vertex. Sinuses: Mucosal thickening of the right sphenoid sinus and opacification of the frontal sinuses, mos t likely iatrogenic. IMPRESSION: 1. Status post anterior circulation, possibly GÓMEZ or anterior cerebral aneurysm clipping with expecte d surgical changes. 2. No evidence of recurrent hemorrhage. 3. Left frontal extradural foci of gas of uncertain chronicity, potentially absorbed from prior surge ry versus indicative of communication with sinus cavities. Correlation with prior postsurgical scans is recommended. Reviewed by: Yesenia Lopez MD on 05/15/2020 7:36 PM PST Approved by: Yesenia Lopez MD on 05/15/2020 7:36 PM PST Station ID: [id number]
[2020-05-15 19:39] LABS: AMPHETAMINE SCREEN,URINE NEGATIVE (NEGATIVE); BENZODIAZEPINES SCREEN, URINE NEGATIVE (NEGATIVE); COCAINE SCREEN URINE NEGATIVE (NEGATIVE); METHADONE SCREEN, URINE NEGATIVE (NEGATIVE); METHAMPHETAMINES SCREEN, URINE NEGATIVE (NEGATIVE); OPIATE SCREEN, URINE NEGATIVE (NEGATIVE); OXYCODONE SCREEN, URINE POSITIVE (NEGATIVE); PROPOXYPHENE SCREEN, URINE NEGATIVE (NEGATIVE); TRICYCLIC ANTIDEPRESSANT,URINE POSITIVE (NEGATIVE)
--- NOTE | 2020-05-15 19:40 | XRAY Report ---
PROCEDURE: Chest 1 View X-Ray INDICATIONS: Hypoxemia TECHNIQUE: One view of the chest was acquired. COMPARISON: 07/05/2018 FINDINGS: Surgical changes and devices: None. Lungs and pleura: No pleural effusions or pneumothorax. Lung volumes are lower. There is minor hazy alveolar opacity is seen in the right lower lung field without dense consolidation.. Mediastinum: Mediastinal contours appear normal. Heart size is normal. Bones and chest wall: No suspicious bony lesions. Overlying soft tissues appear unremarkable. IMPRESSION: 1. Low lung volumes crowd lung markings. 2. Despite this, there may be mild right lower lung alveolar opacity. Correlate with physical exam fi ndings. Reviewed by: Yesenia Lopez MD on 05/15/2020 7:38 PM PST Approved by: Yesenia Lopez MD on 05/15/2020 7:38 PM PST Station ID: [id number]
[2020-05-15 19:45] LABS: VALPROIC ACID (DEPAKOTE) < 10.0 ug/mL
[2020-05-15 20:15] LABS: C. PNEUMONIAE- RESP PCR PANEL NOT DETECTED
[2020-05-15] MEDS ORDERED: oxyCODONE 5 MG TABLET PO STA (22:07)
--- NOTE | 2020-05-15 22:09 | ED Physician Documentation ---
ED Addendum - Addendum Addendum: 05/15/20 22:08 Patient endorsed to me by Dr. Jay awaiting callback from [facility] for possible admission in setting of hydrocephalus. Patient in no acute distress, requesting his scheduled pain medication for his chronic back pain. will continue to monitor. 05/15/20 23:13 d/w [facility] neurosurgeon Dr. Zohaib Mehta who reviewed patient chart, prior images, and ct from today. Patient had a CT in March with similar ventricular dilation that has improved today slightly. A couple days later he had an LP with opening pressure of 15. He had Intermittent delirium during his 2-month hospital stay and was placed on quetiapine and valproate by psychiatry while inpatient. In light of this, Dr. Mehta has low suspicion for hydrocephalus at this time. We will plan to admit to our hospital, restart meds, and monitor him and will reconsult as needed if altered mental status does not improve. 05/15/20 23:16 Diagnosis: 1. altered mental status 2 ruptured aneurysm of intracranial artery. 05/15/20 23:17
[2020-05-15] MEDS ORDERED: ONDANSETRON 4 MG/2 ML VIAL IVP PRN (23:14)
[2020-05-15] MEDS ORDERED: SODIUM CHLORIDE FLUSH 0.9% 10 ML SYRINGE IVP PRN (23:14)
[2020-05-15] MEDS ORDERED: ACETAMINOPHEN 325 MG TABLET PO PRN (23:14)
[2020-05-15 23:19] LABS: GLUCOSE, URINE (UA) NEGATIVE (NEGATIVE); KETONES,URINE (UA) >=80 mg/dL (NEGATIVE); LEUKOCYTE ESTERASE, URINE NEGATIVE (NEGATIVE); NITRITE,URINE NEGATIVE (NEGATIVE); OCCULT BLOOD,URINE NEGATIVE (NEGATIVE); PROTEIN,URINE NEGATIVE (NEGATIVE); UROBILINOGEN,URINE 0.2 (NORMAL) E.U./dL (NORMAL)
--- NOTE | 2020-05-15 23:28 | HISTORY & PHYSICAL EXAMINATION ---
Chief Complaint - Chief Complaint Chief Complaint: Intermittent weakness and confusion History of Present Illness - Admitted From Admitted From:: Home - History Obtained From Records Reviewed: Yes History obtained from: Patient, Family, ER Physician, EMR, DC summary from [facility] Exam Limitations: Patient is deaf. 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 During his stay, he underwent 2 craniotomies as well as angioplasty of bilateral MCAs and ICAs. His hospital course was complicated by delirium and dysphagia. He did require a PEG tube briefly which was removed prior to discharge and he is now on a pured diet. He was seen by psychiatry while inpatient for his delirium and was started on Seroquel and valproic acid. His delirium had improved and he was discharged home on the with recommendation of continuing outpatient physical therapy, Occupational Therapy, speech therapy. The patient had declined rehab. Today he presents from home for unclear reasons. His mjbpmet-dd-nnh tells me that the patient fell at home today but did not hit his head to his knowledge. He states the patient is supposed to be using a walker or cane but he is quite stubborn does not always use one of these devices for ambulation. He states that patient always has a tremor which has been present since his surgical interventions. Patient has not been taking the valproic acid as the medication they received from the pharmacy had a different name and so they were unsure whether it was the correct medication or not. The patient has been managing his own medications and he states that he has been taking them although his dgsgxvh-qy-yfy believes he may be missing some doses. The patient reportedly wrote on his white board today that he wanted to go to the hospital and so his yuvikit-mq-aym brought him here. At my evaluation, the patient knows he is at the hospital but he believes it is 2019. His brother tells me that he is still confused with the year since he was hospitalized for the past 3 months. The patient clearly states that he does not want any more surgical interventions and he believes that he is fine. The patient denies fever, headache, change in vision, chest pain, dyspnea, cough abdominal pain, numbness, tingling, dysuria. He reports no focal weaknesses. He tells me he has been taking all of his medications. In the emergency department, he was found to be afebrile and hemodynamically stable. His labs were unremarkable. Urinalysis was not suggestive of infection. Ammonia was normal. Valproic acid was less than 10. Urine t oxicology screen was positive for tricyclics and oxycodone. He underwent a CT of the head which showed postsurgical changes. This CT scan was reviewed by [facility] neurosurgery who stated that this actually appeared improved compared to his prior imaging and they do not believe that this would explain any of his potential change in mental status. Given the above findings, medicine was consulted for admission. I did discuss goals of care with the patient and he states he has a living will which states he is a DNR. History - Past Medical History Cardiovascular: reports: Hypertension, Angina, Murmur Respiratory: reports: None Neuro: reports: Other (History of subarachnoid hemorrhage secondary to ruptured pericallosal aneurysm.) Endocrine/Autoimmune: reports: None GI: reports: GERD, Hiatal hernia : reports: None HEENT: reports: Chronic hearing loss Psych: reports: None Musculoskeletal: reports: Osteoarthritis, Chronic back pain Derm: reports: None MRSA Hx?: No - Past Surgical History General: reports: Colonoscopy Ortho: reports: Knee replacement, Arthroscopic surgery, Spine surgery, Other Neuro: reports: Craniotomy HEENT: reports: Rhinoplasty - Family & Social History Family History Comment/Other: Patient reports no significant family history. His huxprli-lh-kuc tells me that the patient's father had diabetes. His mother had an unknown respiratory problem. Living arrangement: At home Living Situation: With family Social History Notes: The patient lives at home with his inltops-rl-rkp, Dorian. His over a year ago. The patient still smokes but does not drink alcohol. - POLST Patient has POLST: No Meds/Allgy - Home Medications Home Medications: Ambulatory Orders Medication Instructions Recorded Confirmed Acetaminophen [Tylenol] 325 mg PO Q6H PRN 10/17/12 05/15/20 Baclofen 5 mg PO BID 10/17/12 05/15/20 Omeprazole [PriLOSEC] 20 mg PO BID 10/17/12 05/15/20 oxyCODONE [Roxicodone] 5 mg PO Q4-6H PRN 10/17/12 05/15/20 Aspirin [Aspirin EC] 81 mg PO DAILY 05/15/20 05/15/20 Diclofenac Submicronized 1 mg PO BID 05/15/20 05/15/20 [Diclofenac] Gabapentin [Neurontin] 200 mg PO TID 05/15/20 05/15/20 Melatonin 6 mg PO HS 05/15/20 05/15/20 Metoprolol Tartrate [Lopressor] 12.5 mg PO BID 05/15/20 05/15/20 Pravastatin [Pravachol] 40 mg PO DAILY 05/15/20 05/15/20 QUEtiapine [SEROquel] 100 mg PO TID 05/15/20 05/15/20 Senna [Senokot] 17.2 mg PO HS PRN 05/15/20 05/15/20 Valproic Acid 500 mg PO DAILY 05/15/20 05/15/20 bisacodyL [Dulcolax] 5 mg PO DAILY 05/15/20 05/15/20 - Allergies Allergies/Adverse Reactions: Allergies Allergy/AdvReac Type Severity Reaction Status Date / Time ethyl alcohol Allergy Intermediate angry Verified 02/26/20 20:06 hydromorphone HCl * Allergy Intermediate violent Verified 02/26/20 20:06 [From Dilaudid] meperidine HCl * Allergy Intermediate angry Verified 02/26/20 20:06 [From Demerol] propoxyphene HCl * Allergy Intermediate angry Verified 02/26/20 20:06 [From Darvon] naproxen Allergy Unknown unknown Verified 02/26/20 20:06 morphine Allergy Unknown Verified 05/15/20 18:15 Review of Systems - Constitutional Constitutional: denies: Fever - Eyes Eyes: denies: Blurred vision, Vision loss - Cardiovascular Cariovascular: denies: Chest pain, Exertional dyspnea, Decr. exercise tolerance - Respiratory Respiratory: denies: Cough, SOB at rest, SOB with exertion - Gastrointestinal Gastrointestinal: denies: Abdominal pain - Genitourinary Genitourinary: denies: Dysuria, Urgency - Musculoskeletal Musculoskeletal: reports: Back pain. denies: Limited range of motion - Neurological Neurological: reports: Abnormal gait, Other (Tremor). denies: General weakness, Focal weakness, Headache, Numbness - All Other Systems All Other Systems: reports: Other (Review of systems was limited as communication was obtained via writing on white board as the patient is deaf.) Prior Level of Functionality: He is supposed be ambulating with a walker or cane at baseline. He will need outpatient physical therapy per the discharge summary from [facility]. The patient had declined rehab during that hospitalization. He manages his own medications per the klfnrwi-cl-vxy. Exam - Vital Signs Reviewed Vital Signs: Yes Vital Signs: Vital Signs x48h Temp Pulse Resp BP Pulse Ox 05/15/20 22:00 36.9 C 78 16 121/77 95 05/15/20 20:14 36.6 C 68 15 109/72 99 05/15/20 18:14 75 17 142/87 H 97 05/15/20 18:10 36.8 C 99 18 142/87 H 99 - Physical Exam General Appearance: positive: No acute distress, Alert Eyes Bilateral: positive: Normal inspection, Conjunctivae nml ENT: positive: ENT inspection nml Neck: positive: Nml inspection Respiratory: positive: No respiratory distress. negative: Wheezes, Rales Cardiovascular: positive: Regular rate & rhythm, Systolic murmur. negative: Tachycardia Abdomen: positive: Non-tender, No distention, Other (Multiple areas of ecchymosis over the abdomen.). negative: Tenderness Skin: positive: Warm, Dry Extremities: positive: Full ROM, No pedal edema Neurologic/Psychiatric: positive: Motor nml, Disoriented to time, Other (He is oriented to self and location. He believes it is 2020. He is able to communicate and recognize his vabtyhv-bd-qrj. He has excellent motor strength in all four extremities.). negative: Disoriented to person, Disoriented to place, Facial droop, Slurred/abnml speech Conclusion/Plan - Problem List (1) Delirium Conclusion/Plan: His presentation appears consistent with delirium that is waxing and waning. At this time, he does not appear to be overtly disoriented. He is oriented to self and location and recognizes his mznxheh-dc-jhv is able to provide me with a history regarding his who over a year ago. His hospital course was prolonged due to delirium/mood disorder while at [facility] and he has been on Seroquel and valproic acid. It is clear that he is not taking the valproic acid based off history and valproic acid level that was less than 10. CT of the head was obtained and reviewed by neurosurgery who stated that it was improved compared to prior imaging. I suspect the delirium may have been exacerbated at home due to noncompliance with his medications versus just the waxing and waning of the disease process. At this point in time, we will observe him overnight and resume his home Seroquel and valproic acid. I did discuss placement with the patient but he states he feels safe at home and does not want rehab. His okkmafc-co-dtn confirms the patient is quite stubborn at baseline and he declined rehab while at [facility] as well. He is scheduled to see physical therapy on Sunday and we will consider a physical therapy consult tomorrow if he has difficulty ambulating on his own with a cane or walker. (2) Ruptured aneurysm of intracranial artery Conclusion/Plan: He has a history of subarachnoid hemorrhage secondary to ruptured aneurysm. He underwent 2 craniotomies while at [facility] and was just discharged few days ago. CT the head was reviewed by neurosurgery and was improved compared to prior imaging. There was also no evidence of recurrent hemorrhage. We will continue him on aspirin and statin. He does need physical therapy and is scheduled to see them on Sunday on outpatient basis as he declined rehab in the past. As mentioned above, will assess how he ambulates with a cane/walker and will consider physical therapy consult if necessary. (3) Hypertension Conclusion/Plan: His blood pressure is well controlled. We will continue metoprolol. 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 Continue pured diet. He will need outpatient speech therapy. - Lab Results Lab results reviewed: Yes Fish Bones: 05/16/20 05:45 05/16/20 05:45 - Diagnostic Imaging Results Diagnostic Imaging Results: positive: Final report reviewed Core Measures - Anticipated LOS I expect patient to be DC'd or transferred within 96 hours.: Yes - Issues Hospital Issues and Management Plan: 65-year-old male with a recent subarachnoid hemorrhage secondary to ruptured aneurysm who was hospitalized for approximately 3 months at [facility] presents with delirium/confusion after being discharged a few days ago. There is no clear etiology of this and he appears well to be close to his baseline at this time. We will observe him overnight and resume his medications. - DVT/VTE - Prophylaxis VTE/DVT Device ordered at admit?: Yes VTE/DVT Prophylaxis med ordered at admit?: Yes
[2020-05-15 23:30] LABS: CLARITY,URINE CLEAR (CLEAR)
[2020-05-15 23:31] LABS: BILIRUBIN,URINE NEGATIVE (NEGATIVE); ICTOTEST,URINE NEGATIVE
[2020-05-15 23:37] LABS: BACTERIA,URINE None Seen /HPF (None Seen); CRYSTALS,URINE 3-5 Triple Phosphate /LPF; RBC,URINE None Seen /HPF (0-5); SQUAMOUS EPITHELIAL CELL,UR NONE SEEN (<= Few)
[2020-05-16] MEDS: SODIUM CHLORIDE FLUSH 0.9% 10 ML SYRINGE IVP SCH ×2 (00:58→08:07)
[2020-05-16] MEDS: GABAPENTIN 100 MG CAPSULE PO SCH ×2 (05:07→14:11)
[2020-05-16 05:54] LABS: BASOPHILS % (AUTO) 0.7 %; EOSINOPHILS # (AUTO) 0.1 10^3/uL (0.0-0.7); EOSINOPHILS % (AUTO) 1.8 %; LYMPHOCYTES # (AUTO) 1.8 10^3/uL (1.5-3.5); MEAN CORPUSCULAR HEMOGLOBIN 32.2 pg (27.0-31.0); MEAN CORPUSCULAR HGB CONC 33.5 g/dL (32.0-36.0); MEAN PLATELET VOLUME 10.5 fL (7.4-11.4); MONOCYTES # (AUTO) 0.5 10^3/uL (0.0-1.0); MONOCYTES % (AUTO) 7.9 %; NEUTROPHILS # (AUTO) 3.6 10^3/uL (1.5-6.6); NEUTROPHILS % (AUTO) 59.4 %; PLT - PLATELET COUNT 212 10^3/uL (130-450); RED BLOOD COUNT 3.73 10^6/uL (4.70-6.10); RED CELL DISTRIBUTION WIDTH 12.1 % (12.0-15.0)
[2020-05-16 06:03] LABS: CALCIUM 9.4 mg/dL (8.5-10.3); CREATININE 0.9 mg/dL (0.6-1.2)
[2020-05-16] MEDS ORDERED: POTASSIUM CHLORIDE 20 MEQ TABLET PO ONE (07:01)
--- NOTE | 2020-05-16 08:45 | PHARMACY PROGRESS NOTE ---
- Best Possible Medication History Admit Date and Time: 05/15/20 3271 Processed by: Pharmacy Medication History completed: Yes Patient Interview: Pt unable to participate Secondary Source(s): Pharmacy records, Insurance records, Previous admit records As the person ultimately responsible for medication therapy, providers are able to order a medication from an existing home medication list in [facility] via the "Reconcile Routine" prior to Confirmation of that medication by customer support representative. Such practice is discouraged except when the physician, in their clinical judgment, deems that a medical need exists for a medication without regard to previous use.
[2020-05-16] MEDS ORDERED: METOPROLOL TARTRATE 25 MG TABLET PO SCH (09:00)
[2020-05-16] MEDS ORDERED: VALPROATE 250 MG/5 ML SOLUTION UDC PO SCH (09:00)
[2020-05-16] MEDS ORDERED: PANTOPRAZOLE 40 MG TABLET PO SCH (09:00)
[2020-05-16] MEDS ORDERED: ASPIRIN EC 81 MG TABLET PO SCH (09:00)
[2020-05-16] MEDS ORDERED: BACLOFEN 10 MG TABLET PO SCH (09:00)
[2020-05-16] MEDS ORDERED: VALPROIC ACID 250 MG PO SCH (09:00)
[2020-05-16] MEDS ORDERED: QUEtiapine 100 MG TABLET PO SCH ×2 (09:00→21:00)
[2020-05-16] MEDS ORDERED: PRAVASTATIN 40 MG TABLET PO SCH (09:00)
--- NOTE | 2020-05-16 14:17 | Discharge Plan ---
Discharge Plan Problem Reviewed?: Yes Disposition: 01 Home, Self Care Condition: Stable Diet: Regular Activity Restrictions: Activity as Tolerated Shower Restrictions: No Driving Restrictions: Yes (no driving) Health Concerns: You had just been discharged from [facility] after being admitted there for 10 weeks due to a subarachnoid hemorrhage from ruptured aneurysm. Your vuzhrmq-fa-aqz, who moved in to help take care of you, felt that you were confused and not taking your medications appropriately. You are deaf and so communication is sometimes difficult because we have to write everything down on a white board. We reevaluated you in the emergency room and your CAT scan has changes from her previous surgery but no new changes. Your neurosurgeon at [facility] reviewed the CAT scan and feels that it is stable. There is no signs of infection. You do not have any toxins in your blood that we can find. We feel you are stable to go back home. Plan of Treatment: 1. Physical therapy work with you to reeducate you on the use of a walker and a cane. Please use a walker or a cane at home. 2. We have gone over your medication list with your otnbzbp-we-vqk. It is a correct list and we are asking you to please take medication as directed by the list and with the help of your delqicc-dm-drh. 3. Please follow the discharge follow-up instructions per [facility] dated May 18. You were to be weaned off your Seroquel and valproic acid. Suggest 2 to 4 weeks of being weaned off of them. You also need to see the neurosurgery department in 1 year after follow-up because of her aneurysm. You also are to resume physical, occupational, and speech therapy treatment. Care Goals: To safely stay at home. With your dogs. Assessment: Patient understands care goals but disagrees with how to get there. He would prefer that his zoilzeo-dr-wuq and family not be with him. But at the same time he is not safe to be at home alone. No Smoking: If you smoke, Please STOP! Call for help. Follow-up with: Terrence Anguiano MD [Primary Care Provider] -
[2020-05-16 14:58] VITALS: BP 134/81
--- NOTE | 2020-05-16 15:46 | DISCHARGE SUMMARY ---
"Discharge Summary Admit Date: 05/15/20 Discharge Date: 05/16/20 Discharging Provider: Gilma Hoyt MD Primary Care Provider: Terrence Anguiano MD Code Status: Do Not Attempt Resuscitation Condition at Discharge: Stable Discharge Disposition: 01 Home, Self Care - DIAGNOSES Discharge Diagnoses with Status of Each Condition: 1 delirium 2. History of subarachnoid hemorrhage 3. 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 Dysphagia following cerebrovascular infarction 5. Hypertension - HPI History of Present Illness: This is a 65-year-old old male with a past medical history significant for rece nt subarachnoid hemorrhage secondary to ruptured large pericallosal aneurysm who was hospitalized at [facility] from February until May 12 for complicated course. During his stay, he underwent 2 craniotomies as well as angioplasty of bilateral MCAs and ICAs. His hospital course was complicated by delirium and dysphagia. He did require a PEG tube briefly which was removed prior to discharge and he is now on a pured diet. He was seen by psychiatry while inpatient for his delirium and was started on Seroquel and valproic acid. His delirium had improved and he was discharged home on the with recommendation of continuing outpatient physical therapy, Occupational Therapy, speech therapy. The patient had declined rehab. Today he presents from home for unclear reasons. His auqkjaj-ea-miy tells me that the patient fell at home today but did not hit his head to his knowledge. He states the patient is supposed to be using a walker or cane but he is quite stubborn does not always use one of these devices for ambulation. He states that patient always has a tremor which has been present since his surgical interventions. Patient has not been taking the valproic acid as the medication they received from the pharmacy had a different name and so they were unsure whether it was the correct medication or not. The patient has been managing his own medications and he states that he has been taking them although his tulpbyv-kn-lbt believes he may be missing some doses. The patient reportedly wrote on his white board today that he wanted to go to the hospital and so his vwtxaog-ec-kkl brought him here. At my evaluation, the patient knows he is at the hospital but he believes it is 2020. His brother tells me that he is still confused with the year since he was hospitalized for the past 3 months. The patient clearly states that he does not want any more surgical interventions and he believes that he is fine. The patient denies fever, headache, change in vision, chest pain, dyspnea, cough abdominal pain, numbness, tingling, dysuria. He reports no focal weaknesses. He tells me he has been taking all of his medications. In the emergency department, he was found to be afebrile and hemodynamically stable. His labs were unremarkable. Urinalysis was not suggestive of infection. Ammonia was normal. Valproic acid was less than 10. Urine toxicology screen was positive for tricyclics and oxycodone. He underwent a CT of the head which showed postsurgical changes. This CT scan was reviewed by [facility] neurosurgery who stated that this actually appeared improved compared to his prior imaging and they do not believe that this would explain any of his potential change in mental status. Given the above findings, medicine was consulted for admission. I did discuss goals of care with the patient and he states he has a living will which states he is a DNR. History - Past Medical History Cardiovascular: reports: Hypertension, Angina, Murmur Respiratory: reports: None Neuro: reports: Other (History of subarachnoid hemorrhage secondary to ruptured pericallosal aneurysm.) Endocrine/Autoimmune: reports: None GI: reports: GERD, Hiatal hernia : reports: None HEENT: reports: Chronic hearing loss Psych: reports: None Musculoskeletal: reports: Osteoarthritis, Chronic back pain Derm: reports: None MRSA Hx?: No - Past Surgical History General: reports: Colonoscopy Ortho: reports: Knee replacement, Arthroscopic surgery, Spine surgery, Other Neuro: reports: Craniotomy HEENT: reports: Rhinoplasty - CONSULTS | PROCEDURES Procedures: CT of head with status post anterior circulation, possibly GÓMEZ or anterior cerebral aneurysm clipping with expected surgical changes. No evidence of recurrent hemorrhage. Left frontal extradural foci of gas of uncertain chronicity, potentially observed from prior surgery versus indicative of communication with sinus cavities. (Neurosurgery at [facility] says that this is a stable CT) chest x-ray shows low lung volumes with crowded lung markings. Despite this there might be a mild lower lung alveolar opacity. - HOSPITAL COURSE Hospital Course: The patient was placed in observation more to make sure that there was not an infection or other cause of his waxing and waning mental status. It became clear that there is a family dynamic between the yvamhim-tg-swg and this patient. The patient's sister, and sister's qplyjqq-hk-prb have all moved in to help him recover from a prolonged illness at [facility]. Social work spent a lot of time discussing the dynamics. Please refer to their notes. During his stay his white cell count was normal. His vitals remained normal. His temperature was normal. As such we think that there is no clinical indication to treat the abnormality that was read on the chest x-ray. The patient himself is oriented to person place and time. He was puzzled about why he was here. There was a slowing of communication because everything had to be written on a white board for him due to his deafness. But it was finally determined between social work and case management that he was able to go home. At discharge temperature was 36.5 pulse was 85 blood pressure 134/81 respirations 1895% on room air. He is 6 foot tall weighs 88 kg. He would rather carry his walker and move it over things and actually put the walker on the floor and use it. Physical therapy work with him on the appropriate use of walker and cane. Neck is supple. Lungs are clear. No respiratory distress. Benign abdomen. Very easily distractible and he had to really get him to focus on the white board. He gets anxious and unhappy when you ask him why he decli izzy inpatient rehab at [facility]. He was in no pain. He was able to independently go from supine to sitting and then standing using the handrails as well as no handrails. We reviewed the discharge plans from [facility]. They clearly state that he is to come off Seroquel and valproic acid. He can to stay off of valproic acid because he is been refusing to take it. And he can continue to taper the Seroquel. To follow-up with neurology/neurosurgery in a year for his aneurysm history. And they did recommend that he go with home health PT and OT. As well as speech therapy because of dysphagia. - ALLERGIES Allergies/Adverse Reactions: Allergies Allergy/AdvReac Type Severity Reaction Status Date / Time ethyl alcohol Allergy Intermediate angry Verified 02/26/20 20:06 hydromorphone HCl * Allergy Intermediate violent Verified 02/26/20 20:06 [From Dilaudid] meperidine HCl * Allergy Intermediate angry Verified 02/26/20 20:06 [From Demerol] propoxyphene HCl * Allergy Intermediate angry Verified 02/26/20 20:06 [From Darvon] naproxen Allergy Unknown unknown Verified 02/26/20 20:06 morphine Allergy Unknown Verified 05/15/20 18:15 - MEDICATIONS Home Medications: Ambulatory Orders Medication Instructions Recorded Confirmed Acetaminophen [Tylenol] 325 mg PO Q6H PRN 10/17/12 05/15/20 Baclofen 5 mg PO BID 10/17/12 05/15/20 Omeprazole [PriLOSEC] 20 mg PO BID 10/17/12 05/15/20 oxyCODONE [Roxicodone] 5 mg PO Q4-6H PRN 10/17/12 05/15/20 Aspirin [Aspirin EC] 81 mg PO DAILY 05/15/20 05/15/20 Gabapentin [Neurontin] 200 mg PO TID 05/15/20 05/15/20 Melatonin 6 mg PO HS 05/15/20 05/15/20 Metoprolol Tartrate [Lopressor] 12.5 mg PO BID 05/15/20 05/15/20 Pravastatin [Pravachol] 40 mg PO DAILY 05/15/20 05/15/20 QUEtiapine [SEROquel] 100 mg PO 0800,1500 05/15/20 05/16/20 Senna [Senokot] 17.2 mg PO HS PRN 05/15/20 05/15/20 Valproic Acid 500 mg PO DAILY 05/15/20 05/15/20 bisacodyL [Dulcolax] 5 mg PO DAILY PRN 05/15/20 05/15/20 Diclofenac Sodium [Voltaren] 2 gm TOP BID PRN 05/16/20 05/16/20 Quetiapine Fumarate [Seroquel] 400 mg PO QPM 05/16/20 05/16/20 - LABS Result Diagrams: 05/16/20 05:45 05/16/20 05:45"
== END 2020-05-16 17:00 | disposition home or self-care (01) ==
LOC: ED 17:53 → MS2 23:14
PROVIDERS: ADMIT Internal Medicine; ATTEND Specialist
DX: R41.0 Disorientation, unspecified (principal); I69.019 Unspecified symptoms and signs involving cognitive functions following nontraumatic subarachnoid hemorrhage; I69.091 Dysphagia following nontraumatic subarachnoid hemorrhage; I69.098 Other sequelae following nontraumatic subarachnoid hemorrhage; R26.89 Other abnormalities of gait and mobility; R25.1 Tremor, unspecified; I10 Essential (primary) hypertension; K21.9 Gastro-esophageal reflux disease without esophagitis; K44.9 Diaphragmatic hernia without obstruction or gangrene; F17.200 Nicotine dependence, unspecified, uncomplicated; G89.29 Other chronic pain; M54.9 Dorsalgia, unspecified; M19.90 Unspecified osteoarthritis, unspecified site; Z66 Do not resuscitate; Z96.659 Presence of unspecified artificial knee joint; R91.8 Other nonspecific abnormal finding of lung field; Z91.128 Patient's intentional underdosing of medication regimen for other reason; Z91.19 Patient's noncompliance with other medical treatment and regimen; Z79.891 Long term (current) use of opiate analgesic; Z79.82 Long term (current) use of aspirin; Z79.899 Other long term (current) drug therapy
CPT/HCPCS: 36415; 70450; 71045; 80048; 80053; 80164; 80306; 81001; 82140; 83735; 84100; 85025; 85610; 87631; 93005; 97161; 99285; A9270; G0378; G0480; J3490; 0202U; 80320; 87086

== ENCOUNTER 2020-07-02 14:14 | Emergency (ER) | payer MEDICARE ==
--- NOTE | 2020-07-02 15:09 | ED Physician Documentation ---
History of Present Illness - Stated complaint Stated Complaint: CHILLS/HEAD PX - Chief complaint Chief Complaint: General - Additonal information Additional information: 65-year-old male presents to the emergency department for evaluation of generalized malaise, myalgias fatigue that began yesterday. Unsure if he has had a fever. He denies vomiting or diarrhea. Intermittently he will have chest pain and a dry cough. He is a daily tobacco user. Pt has received COVID vaccination X2 Much of the history is obtained from the [id number]. This gentleman unfortunately had a large subarachnoid hemorrhage due to an aneurysm and was hos pitalized at [facility] from February until May 2020. Discharge summary from [facility] dated May 12 of this year received and reviewed. Hospital course was complicated by vasospasm and need for pressors, UTI, EVD and craniotomy. He had bifrontal craniotomy and orbital frontal craniotomy with clipping of the aneurysm on February 26. He did have cardiac arrest during the surgery with EVD placement. Subsequently had angioplasty of both MCAs and ICAs. Redo craniotomy on March 12. Had severe delirium and agitation trouble with swallowing. Pt was briefly admitted to this hospital in May with altered mentation but was discharged home when no signs of infection were found. The [id number] reports that intermittently he is confused or acts funny but sometimes he is back to normal. He says yesterday he was acting funny and did not speak right but today he seems to be speaking normally. [id number] has a difficult time elaborating on the symptom and seems frustrated with the care of patient Review of Systems Unable to obtain: Confused, Other (obtained from chart and brother in law) Constitutional: reports: Chills, Myalgias, Fatigue. denies: Fever Ears: reports: Loss of hearing ([place]; uses hearing aid) Nose: reports: Reviewed and negative Throat: reports: Reviewed and negative Cardiac: reports: Chest pain / pressure, Palpitations Respiratory: reports: Cough. denies: Dyspnea GI: reports: Constipation. denies: Abdominal Pain, Nausea, Vomiting, Diarrhea : denies: Dysuria, Frequency Skin: reports: Reviewed and negative Musculoskeletal: reports: Reviewed and negative Neurologic: reports: Generalized weakness, Confused. denies: Focal weakness, Numbness PD PAST MEDICAL HISTORY - Past Medical History Cardiovascular: Hypertension, Angina, Murmur Respiratory: None Neuro: Other Endocrine/Autoimmune: None GI: GERD, Hiatal hernia : None HEENT: Chronic hearing loss Psych: None Musculoskeletal: Osteoarthritis, Chronic back pain Derm: None - Past Surgical History Past Surgical History: Yes General: Colonoscopy Ortho: Knee replacement, Arthroscopic surgery, Spine surgery, Other Neuro: Craniotomy HEENT: Rhinoplasty - Present Medications Home Medications: Ambulatory Orders Medication Instructions Recorded Confirmed Acetaminophen [Tylenol] 325 mg PO Q6H PRN 10/17/12 07/02/20 Baclofen 5 mg PO BID 10/17/12 07/02/20 Omeprazole [PriLOSEC] 20 mg PO TID 10/17/12 07/02/20 oxyCODONE [Roxicodone] 10 mg PO Q4-6H PRN 10/17/12 07/02/20 Aspirin [Aspirin EC] 81 mg PO DAILY 05/15/20 07/02/20 Gabapentin [Neurontin] 200 mg PO TID 05/15/20 07/02/20 Melatonin 6 mg PO HS 05/15/20 07/02/20 Pravastatin [Pravachol] 40 mg PO DAILY 05/15/20 07/02/20 QUEtiapine [SEROquel] 100 mg PO 0800,1500 05/15/20 07/02/20 Senna [Senokot] 17.2 mg PO HS PRN 05/15/20 07/02/20 Valproic Acid 500 mg PO DAILY 05/15/20 07/02/20 Diclofenac Sodium [Voltaren] 2 gm TOP BID PRN 05/16/20 07/02/20 Quetiapine Fumarate [Seroquel] 200 mg PO QPM 05/16/20 07/02/20 Baclofen 5 mg PO BID 07/02/20 07/02/20 Ibuprofen [Motrin] 800 mg PO TID 07/02/20 07/02/20 - Allergies Allergies/Adverse Reactions: Allergies Allergy/AdvReac Type Severity Reaction Status Date / Time ethyl alcohol Allergy Intermediate angry Verified 07/02/20 14:17 hydromorphone HCl * Allergy Intermediate violent Verified 07/02/20 14:17 [From Dilaudid] meperidine HCl * Allergy Intermediate angry Verified 07/02/20 14:17 [From Demerol] propoxyphene HCl * Allergy Intermediate angry Verified 07/02/20 14:17 [From Darvon] naproxen Allergy Unknown unknown Verified 07/02/20 14:17 morphine Allergy Unknown Verified 07/02/20 14:17 - Social History Does the pt smoke?: No Smoking Status: Never smoker Does the pt drink ETOH?: Yes Does the pt have substance abuse?: No - Immunizations Immunizations are current?: No - POLST Patient has POLST: No PD ED PE EXPANDED - General General: Alert, No acute distress, Well developed/nourished - HEENT HEENT: PERRL - Cardiac Cardiac: Regular Rate, Regular Rhythm, Murmur Present, Radial strong equal, Cap refill < 2 sec - Respiratory Respiratory: Clear to ausultation katy. No: Distress - Abdomen Abdomen: Normal Bowel sounds. No: Tender to palpation - Back Back: Normal exam - Derm Derm: Normal color, Warm and dry - Neuro Neuro: Alert and Oriented X 3, CNII-XII intact - GCS Eye Opening: Spontaneous Motor: Obeys Commands Verbal: Oriented (answers question appropriately with paper and pen) Total: 15 Results - Vitals Vitals: Vital Signs - 24 hr 07/02/20 07/02/20 14:17 17:16 Temperature 36.7 C 36.6 C Heart Rate 88 74 Respiratory 16 18 Rate Blood Pressure 117/75 110/75 O2 Saturation 96 100 Oxygen O2 Source Room air - EKG (time done) 1504 Rate: Rate (enter#) (77) Rhythm: NSR [place]: Normal Intervals: Normal ND QRS: Normal Ischemia: Normal ST segments Compare to prior EKG: Unchanged from prior EKG Computer interpretation: Agree with computer - Labs Labs: Laboratory Tests 07/02/20 07/02/20 07/02/20 15:10 15:10 15:10 WBC 13.6 H RBC 4.12 L Hgb 12.7 L Hct 38.5 L MCV 93.4 MCH 30.8 MCHC 33.0 RDW 13.1 Plt Count 169 MPV 11.2 Neut # (Auto) 11.5 H Lymph # (Auto) 1.4 L [place] # (Auto) 0.6 Eos # (Auto) 0.0 Baso # (Auto) 0.0 Absolute Nucleated RBC 0.00 Nucleated RBC % 0.0 Sodium 141 Potassium 3.9 Chloride 106 Carbon Dioxide 25 Anion Gap 10.0 BUN 32 H Creatinine 1.0 Estimated GFR (MDRD) 75 L Glucose 82 Lactic Acid Calcium 9.4 Total Bilirubin 0.5 AST 20 ALT 20 Alkaline Phosphatase 76 Ammonia Troponin I High Sens 4.2 Total Protein 7.1 Albumin 4.0 Globulin 3.1 Albumin/Globulin Ratio 1.3 Lipase 21 L Urine Color Urine Clarity Urine pH Ur Specific [place] Urine Protein Urine Glucose (UA) Urine Ketones Urine Occult Blood Urine Nitrite Urine Bilirubin Urine Urobilinogen Ur Leukocyte Esterase Ur Microscopic Review Urine Culture Comments Last Dose Date Last Dose Time Urine Opiates Screen Ur Oxycodone Screen Urine Methadone Screen Ur Propoxyphene Screen Ur Barbiturates Screen Valproic Acid Ur Tricyclics Screen Ur Phencyclidine Scrn Ur Amphetamine Screen U Methamphetamines Scrn U Benzodiazepines Scrn Urine Cocaine Screen U Cannabinoids Screen 07/02/20 07/02/20 07/02/20 15:10 15:10 15:10 WBC RBC Hgb Hct MCV MCH MCHC RDW Plt Count MPV Neut # (Auto) Lymph # (Auto) [place] # (Auto) Eos # (Auto) Baso # (Auto) Absolute Nucleated RBC Nucleated RBC % Sodium Potassium Chloride Carbon Dioxide Anion Gap BUN Creatinine Estimated GFR (MDRD) Glucose Lactic Acid 1.1 Calcium Total Bilirubin AST ALT Alkaline Phosphatase Ammonia 29.5 Troponin I High Sens Total Protein Albumin Globulin Albumin/Globulin Ratio Lipase Urine Color Urine Clarity Urine pH Ur Specific [place] Urine Protein Urine Glucose (UA) Urine Ketones Urine Occult Blood Urine Nitrite Urine Bilirubin Urine Urobilinogen Ur Leukocyte Esterase Ur Microscopic Review Urine Culture Comments Last Dose Date NA Last Dose Time NA Urine Opiates Screen Ur Oxycodone Screen Urine Methadone Screen Ur Propoxyphene Screen Ur Barbiturates Screen Valproic Acid 13.9 Ur Tricyclics Screen Ur Phencyclidine Scrn Ur Amphetamine Screen U Methamphetamines Scrn U Benzodiazepines Scrn Urine Cocaine Screen U Cannabinoids Screen 07/02/20 15:11 WBC RBC Hgb Hct MCV MCH MCHC RDW Plt Count MPV Neut # (Auto) Lymph # (Auto) [place] # (Auto) Eos # (Auto) Baso # (Auto) Absolute Nucleated RBC Nucleated RBC % Sodium Potassium Chloride Carbon Dioxide Anion Gap BUN Creatinine Estimated GFR (MDRD) Glucose Lactic Acid Calcium Total Bilirubin AST ALT Alkaline Phosphatase Ammonia Troponin I High Sens Total Protein Albumin Globulin Albumin/Globulin Ratio Lipase Urine Color YELLOW Urine Clarity CLEAR Urine pH 5.0 Ur Specific [place] 1.020 Urine Protein NEGATIVE Urine Glucose (UA) NEGATIVE Urine Ketones NEGATIVE Urine Occult Blood NEGATIVE Urine Nitrite NEGATIVE Urine Bilirubin NEGATIVE Urine Urobilinogen 0.2 (NORMAL) Ur Leukocyte Esterase NEGATIVE Ur Microscopic Review NOT INDICATED Urine Culture Comments NOT INDICATED Last Dose Date Last Dose Time Urine Opiates Screen NEGATIVE Ur Oxycodone Screen POSITIVE H Urine Methadone Screen NEGATIVE Ur Propoxyphene Screen NEGATIVE Ur Barbiturates Screen NEGATIVE Valproic Acid Ur Tricyclics Screen POSITIVE H Ur Phencyclidine Scrn NEGATIVE Ur Amphetamine Screen NEGATIVE U Methamphetamines Scrn POSITIVE H U Benzodiazepines Scrn NEGATIVE Urine Cocaine Screen NEGATIVE U Cannabinoids Screen NEGATIVE - Rads (name of study) CXR Radiology: Final report received (no acute process) CT head Radiology: Final report received (Postsurgical changes related to GÓMEZ aneurysm clipping. No acute intracranial abnormality demonstrated.) PD MEDICAL DECISION MAKING - ED course Complexity details: reviewed old records, reviewed results, re-evaluated patient, considered differential, d/w patient ED course: 65-year-old male was brought to the emergency department for evaluation of a general complaint of not feeling well. He reports that since yesterday he has had subjective myalgias and chills. No fever or worrisome vital sign derangement here. He has received 2 COVID-19 vaccinations. History is difficult to obtain from the patient as he does have a cognitive D effect after an GÓMEZ aneurysm and subarachnoid hemorrhage that resulted in a lengthy hospitalization at [facility] in February and March 2020. Screening labs today show a mild leukocytosis. However there is no significant other abnormality in electrolytes or UA which shows no signs of infection. Chest x-ray shows no infection. His vital signs are essentially normal without fever. Neurologically he he has no focal neuro deficits but does use a cane for ambulation. His brother in law he reports that he is behaving and mentating at baseline. We did discuss that the urine drug screen was positive for methamphetamine and both patient and [id number] deny the possibility that he could have taken any. At this point he is stable for discharge home. Advised to get rest drink lots of fluids and return for worsening symptoms. Departure - Departure Disposition: 01 Home, Self Care Clinical Impression: Myalgia, Positive urine drug screen Fatigue Qualifiers: Fatigue type: unspecified Qualified Code(s): R53.83 - Other fatigue Condition: Stable Record reviewed to determine appropriate education?: Yes Comments: You are seen in the emergency department today for fatigue body aches and not feeling well. Your screening labs are essentially normal however your urine drug screen was positive for methamphetamine. If you are using methamphetamine I do advise you to stop. Your chest x-ray showed no signs of pneumonia and your head CT is stable with no new findings. It is likely that you have a viral illness causing the fatigue and body aches. I recommend you get plenty of rest and drink lots of fluids. If at any point you feel that your symptoms are worsening please return immediately to the ER. Discharge Date/Time: 07/02/20 17:30
[2020-07-02 15:16] LABS: MUDS CUTOFF CONCENTRATIONS CUTOFF CONC BELOW:
[2020-07-02 15:21] LABS: BASOPHILS % (AUTO) 0.3 %; EOSINOPHILS % (AUTO) 0.1 %; HCT - HEMATOCRIT 38.5 % (42.0-52.0); HGB - HEMOGLOBIN 12.7 g/dL (14.0-18.0); LYMPHOCYTES # (AUTO) 1.4 10^3/uL (1.5-3.5); LYMPHOCYTES % (AUTO) 10.1 %; MEAN CORPUSCULAR HEMOGLOBIN 30.8 pg (27.0-31.0); MEAN CORPUSCULAR VOLUME 93.4 fL (80.0-94.0); MEAN PLATELET VOLUME 11.2 fL (7.4-11.4); MONOCYTES # (AUTO) 0.6 10^3/uL (0.0-1.0); MONOCYTES % (AUTO) 4.4 %; NEUTROPHILS # (AUTO) 11.5 10^3/uL (1.5-6.6); NEUTROPHILS % (AUTO) 84.9 %; PLT - PLATELET COUNT 169 10^3/uL (130-450); RED BLOOD COUNT 4.12 10^6/uL (4.70-6.10); RED CELL DISTRIBUTION WIDTH 13.1 % (12.0-15.0); WHITE BLOOD COUNT 13.6 x10^3/uL (4.8-10.8)
[2020-07-02 15:25] LABS: BILIRUBIN,URINE NEGATIVE (NEGATIVE); GLUCOSE, URINE (UA) NEGATIVE (NEGATIVE); KETONES,URINE (UA) NEGATIVE (NEGATIVE); LEUKOCYTE ESTERASE, URINE NEGATIVE (NEGATIVE); NITRITE,URINE NEGATIVE (NEGATIVE); OCCULT BLOOD,URINE NEGATIVE (NEGATIVE); PROTEIN,URINE NEGATIVE (NEGATIVE); UROBILINOGEN,URINE 0.2 (NORMAL) E.U./dL (NORMAL)
[2020-07-02 15:30] LABS: CLARITY,URINE CLEAR (CLEAR)
[2020-07-02 15:36] LABS: AMPHETAMINE SCREEN,URINE NEGATIVE (NEGATIVE); BARBITURATE SCREEN,UR NEGATIVE (NEGATIVE); BENZODIAZEPINES SCREEN, URINE NEGATIVE (NEGATIVE); COCAINE SCREEN URINE NEGATIVE (NEGATIVE); METHADONE SCREEN, URINE NEGATIVE (NEGATIVE); METHAMPHETAMINES SCREEN, URINE POSITIVE (NEGATIVE); OPIATE SCREEN, URINE NEGATIVE (NEGATIVE); OXYCODONE SCREEN, URINE POSITIVE (NEGATIVE); PROPOXYPHENE SCREEN, URINE NEGATIVE (NEGATIVE); THC CANNABINOID SCREEN, URINE NEGATIVE (NEGATIVE); TRICYCLIC ANTIDEPRESSANT,URINE POSITIVE (NEGATIVE)
[2020-07-02 15:39] LABS: ALBUMIN/GLOBULIN RATIO 1.3 (1.0-2.2); BILIRUBIN,TOTAL 0.5 mg/dL (0.2-1.0); CALCIUM 9.4 mg/dL (8.5-10.3); POTASSIUM 3.9 mmol/L (3.5-5.0); TOTAL PROTEIN 7.1 g/dL (6.7-8.2)
[2020-07-02 15:40] LABS: VALPROIC ACID (DEPAKOTE) 13.9 ug/mL
--- NOTE | 2020-07-02 15:44 | CT Report ---
PROCEDURE: HEAD WO INDICATIONS: Altered mental status TECHNIQUE: Noncontrast 4.5 mm thick angled axial sections acquired from the foramen magnum to the vertex. For r adiation dose reduction, the following was used: automated exposure control, adjustment of mA and/or kV according to patient size. COMPARISON: 05/15/2019 FINDINGS: Aneurysm clips in the interhemispheric fissure likely reflecting prior GÓMEZ aneurysm clipping. Streak artifact from the clips limits evaluation. Within this limitation, there is no acute intracranial hem orrhage, abnormal extra axial fluid collection, mass effect, or midline shift. Global cerebral volume loss with superimposed postsurgical encephalomalacia is unchanged. Chronic microvascular ischemic ch anges again noted. Paranasal sinuses and mastoid air cells are predominantly clear. IMPRESSION: Postsurgical changes related to GÓMEZ aneurysm clipping. No acute intracranial abnormality demonstrated. Reviewed by: Sheldon Ellis MD on 07/02/2020 3:43 PM PDT Approved by: Sheldon Ellis MD on 07/02/2020 3:43 PM PDT Station ID: [id number]
--- NOTE | 2020-07-02 15:45 | XRAY Report ---
PROCEDURE: Chest 1 View X-Ray INDICATIONS: Chest pain TECHNIQUE: One view of the chest was acquired. COMPARISON: 05/15/2020 FINDINGS: Surgical changes and devices: None. Lungs and pleura: No pleural effusions or pneumothorax. Lungs are clear. Mediastinum: Mediastinal contours appear normal. Heart size is normal. Bones and chest wall: No suspicious bony lesions. Overlying soft tissues appear unremarkable. IMPRESSION: No acute cardiopulmonary process demonstrated radiographically. Reviewed by: Sheldon Ellis MD on 07/02/2020 3:43 PM PDT Approved by: Sheldon Ellis MD on 07/02/2020 3:43 PM PDT Station ID: [id number]
[2020-07-02 17:16] VITALS: BP 110/75
== END 2020-07-02 17:30 | disposition home or self-care (01) ==
LOC: ED 14:14
DX: M79.10 Myalgia, unspecified site (principal); R82.5 Elevated urine levels of drugs, medicaments and biological substances; R41.82 Altered mental status, unspecified; R53.83 Other fatigue; I10 Essential (primary) hypertension
CPT/HCPCS: 36415; 80053; 80164; 80306; 81001; 81003; 82140; 83605; 83690; 84484; 85025; 87086; 93005; 99284

== ENCOUNTER 2021-03-21 15:33 | Emergency (ER) | payer MEDICARE ==
--- NOTE | 2021-03-21 15:49 | ED Physician Documentation ---
PD HPI ABD PAIN - Stated complaint Stated Complaint: BACK PX,DIZZY,ABD PX - Chief complaint Chief Complaint: General - History obtained from History obtained from: Patient - History of Present Illness Timing - onset: Today Timing - duration: Hours (few) Timing - details: Gradual onset (Patient states he had a onset of lightheadedness and feeling some mild headache. He states that led to being off balance. He did fall but did not feel he struck his head. Ongoing abdominal and back pain.), Still present Quality: Cramping, Aching, Pain (lower abdomen into back.) Location: Periumbilical, Suprapubic Radiation: Lower back Associated symptoms: No: Fever, Nausea, Diarrhea, Constipation, Dysuria, Loss of appetite Recently seen: Not recently seen Review of Systems Constitutional: denies: Fever, Chills Nose: denies: Rhinorrhea / runny nose, Congestion Throat: denies: Sore throat Respiratory: denies: Cough PD PAST MEDICAL HISTORY - Past Medical History Cardiovascular: Hypertension, Angina, Murmur Respiratory: None Neuro: Other Endocrine/Autoimmune: None GI: GERD, Hiatal hernia : None HEENT: Chronic hearing loss Psych: None Musculoskeletal: Osteoarthritis, Chronic back pain Derm: None - Past Surgical History Past Surgical History: Yes General: Colonoscopy Ortho: Knee replacement, Arthroscopic surgery, Spine surgery, Other Neuro: Craniotomy HEENT: Rhinoplasty - Present Medications Home Medications: Ambulatory Orders Medication Instructions Recorded Confirmed Acetaminophen [Tylenol] 325 mg PO Q6H PRN 10/17/12 07/02/20 Baclofen 5 mg PO BID 10/17/12 07/02/20 Omeprazole [PriLOSEC] 20 mg PO TID 10/17/12 07/02/20 oxyCODONE [Roxicodone] 10 mg PO Q4-6H PRN 10/17/12 07/02/20 Aspirin [Aspirin EC] 81 mg PO DAILY 05/15/20 07/02/20 Gabapentin [Neurontin] 200 mg PO TID 05/15/20 07/02/20 Melatonin 6 mg PO HS 05/15/20 07/02/20 Pravastatin [Pravachol] 40 mg PO DAILY 05/15/20 07/02/20 QUEtiapine [SEROquel] 100 mg PO 0800,1500 05/15/20 07/02/20 Senna [Senokot] 17.2 mg PO HS PRN 05/15/20 07/02/20 Valproic Acid 500 mg PO DAILY 05/15/20 07/02/20 Diclofenac Sodium [Voltaren] 2 gm TOP BID PRN 05/16/20 07/02/20 Quetiapine Fumarate [Seroquel] 200 mg PO QPM 05/16/20 07/02/20 Baclofen 5 mg PO BID 07/02/20 07/02/20 Ibuprofen [Motrin] 800 mg PO TID 07/02/20 07/02/20 - Allergies Allergies/Adverse Reactions: Allergies Allergy/AdvReac Type Severity Reaction Status Date / Time ethyl alcohol Allergy Intermediate angry Verified 03/21/21 15:39 hydromorphone HCl * Allergy Intermediate violent Verified 03/21/21 15:39 [From Dilaudid] meperidine HCl * Allergy Intermediate angry Verified 03/21/21 15:39 [From Demerol] propoxyphene HCl * Allergy Intermediate angry Verified 03/21/21 15:39 [From Darvon] naproxen Allergy Unknown unknown Verified 03/21/21 15:39 morphine Allergy Unknown Verified 03/21/21 15:39 - Social History Does the pt smoke?: No Smoking Status: Never smoker Does the pt drink ETOH?: Yes Does the pt have substance abuse?: No - Immunizations Immunizations are current?: No - POLST Patient has POLST: No PD ED PE NORMAL - Vitals Vital signs reviewed: Yes - General General: Alert and oriented X 3, No acute distress, Well developed/nourished, Other (hard of hearing and needs some communication written out to read. ) - HEENT HEENT: Atraumatic, PERRL, EOMI, Pharynx benign - Neck Neck: Supple, no meningeal sign, No bony TTP, No adenopathy - Cardiac Cardiac: RRR, No murmur - Respiratory Respiratory: Clear bilaterally - Abdomen Abdomen: Normal bowel sounds, Soft, Non distended, No organomegaly, Other (mild tender mid to lower abd without guarding nor percussion tender. ) - Back Back: No CVA TTP - Derm Derm: Normal color, Warm and dry - Extremities Extremities: Other (some resting shakiness and tremor, increases some with intention. ) - Neuro Neuro: Alert and oriented X 3, No motor deficit, No sensory deficit, Normal speech Results - Vitals Vitals: Vital Signs - 24 hr 03/21/21 03/21/21 03/21/21 15:39 18:06 20:00 Temperature 36.6 C 36.6 C Heart Rate 57 L 50 L 60 Respiratory 16 16 16 Rate Blood Pressure 172/65 H 151/86 H 146/77 H O2 Saturation 98 98 98 Oxygen O2 Source Room air - Labs Labs: Laboratory Tests 03/21/21 03/21/21 03/21/21 15:53 15:53 18:03 WBC 8.5 RBC 4.32 L Hgb 13.3 L Hct 39.9 L MCV 92.4 MCH 30.8 MCHC 33.3 RDW 13.2 Plt Count 210 MPV 11.7 H Neut # (Auto) 6.1 Lymph # (Auto) 1.9 [place] # (Auto) 0.4 Eos # (Auto) 0.0 Baso # (Auto) 0.0 Absolute Nucleated RBC 0.00 Nucleated RBC % 0.0 Sodium 145 Potassium 3.9 Chloride 107 Carbon Dioxide 27 Anion Gap 11.0 BUN 27 H Creatinine 0.8 Estimated GFR (MDRD) 97 Glucose 124 H Calcium 9.6 Total Bilirubin 0.5 AST 22 ALT 22 Alkaline Phosphatase 93 Total Protein 7.4 Albumin 4.2 Globulin 3.2 Albumin/Globulin Ratio 1.3 Lipase 23 Urine Color YELLOW Urine Clarity CLEAR Urine pH 6.5 Ur Specific [place] 1.020 Urine Protein NEGATIVE Urine Glucose (UA) NEGATIVE Urine Ketones NEGATIVE Urine Occult Blood NEGATIVE Urine Nitrite NEGATIVE Urine Bilirubin NEGATIVE Urine Urobilinogen 0.2 (NORMAL) Ur Leukocyte Esterase NEGATIVE Ur Microscopic Review NOT INDICATED Urine Culture Comments NOT INDICATED - Rads (name of study) abd CT Radiology: Prelim report reviewed (no acute finding), See rad report head CT Radiology: Prelim report reviewed, Discussed with rads (likely motion artifact versus isodense 3 mm extra-axial fluid on coronal view only. Does not appear bright. Suggests repeat CT at interval.), See rad report PD MEDICAL DECISION MAKING - ED course Complexity details: reviewed results (Nominal CT without any acute findings. Labs are normal. Head CT showed either motion artifact or a 3 mm isodense layer seen just on 1 view concerning for subacute subdural. Radiologist suggests interval CT.), considered differential (Complained of abdominal pain and some nausea with feeling of lightheadedness. Denies true vertigo. It was question of a fall but denies striking his head. He is concerned however since he has had prior aneurysm with clipping. Not on blood thinners.), d/w patient ED course: The patient is feeling well here in the ER. He denies headache. He does have a baseline tremor which cause a lot of motion artifact for the CT. This was apparent in a prior CT as well. At this point the finding on the head CT is minimal and likely motion artifact. I would repeat it at a few hour interval with the goal of seeing a it is just not visible on repeat and therefore motion artifact this time. The interval between would also allow for any change in size if it were true finding of a minimal subdural. Pending the repeat scan I do not see necessary need for neurosurgical intervention or review since Radiol ogy eval is more likely motion artifact when discussed. I advised the patient and his friend of the findings with unclear if a true finding and the rationale for waiting a few hours to repeat to evaluate both trueness of the finding and also any interval change in size. Departure - Departure Clinical Impression: Lower abdominal pain, Lightheadedness Condition: Stable Record reviewed to determine appropriate education?: Yes Follow-Up: Terrence Anguiano MD [Primary Care Provider] - Comments: Unclear the cause of your stomach pains today. No abnormality seen on abdomen CT nor labs. Stay well hydrated. Normal medications. FOllow up with your PMD. Tylneol if needed for pains.
[2021-03-21 16:06] LABS: BASOPHILS % (AUTO) 0.5 %; EOSINOPHILS % (AUTO) 0.5 %; HCT - HEMATOCRIT 39.9 % (42.0-52.0); HGB - HEMOGLOBIN 13.3 g/dL (14.0-18.0); LYMPHOCYTES # (AUTO) 1.9 10^3/uL (1.5-3.5); LYMPHOCYTES % (AUTO) 21.9 %; MEAN CORPUSCULAR HEMOGLOBIN 30.8 pg (27.0-31.0); MEAN CORPUSCULAR HGB CONC 33.3 g/dL (32.0-36.0); MEAN CORPUSCULAR VOLUME 92.4 fL (80.0-94.0); MEAN PLATELET VOLUME 11.7 fL (7.4-11.4); MONOCYTES # (AUTO) 0.4 10^3/uL (0.0-1.0); MONOCYTES % (AUTO) 4.9 %; NEUTROPHILS # (AUTO) 6.1 10^3/uL (1.5-6.6); NEUTROPHILS % (AUTO) 71.8 %; PLT - PLATELET COUNT 210 10^3/uL (130-450); RED BLOOD COUNT 4.32 10^6/uL (4.70-6.10); RED CELL DISTRIBUTION WIDTH 13.2 % (12.0-15.0); WHITE BLOOD COUNT 8.5 x10^3/uL (4.8-10.8)
[2021-03-21] MEDS ORDERED: SODIUM CHLORIDE 0.9% 1,000 ML IV STA (16:10)
[2021-03-21 16:19] LABS: ALBUMIN 4.2 g/dL (3.2-5.5); ALBUMIN/GLOBULIN RATIO 1.3 (1.0-2.2); BILIRUBIN,TOTAL 0.5 mg/dL (0.2-1.0); CALCIUM 9.6 mg/dL (8.5-10.3); CREATININE 0.8 mg/dL (0.6-1.2); POTASSIUM 3.9 mmol/L (3.5-5.0); TOTAL PROTEIN 7.4 g/dL (6.7-8.2)
[2021-03-21] MEDS ORDERED: IOPAMIDOL-300 100 ML VIAL ONE (17:18)
--- NOTE | 2021-03-21 18:08 | CT Report ---
PROCEDURE: Abdomen/Pelvis W INDICATIONS: abd pain and lightheaded CONTRAST: IV CONTRAST: Isovue 300 ml: 100 PO CONTRAST: *NO PO CONTRAST TECHNIQUE: After the administration of contrast, 5 mm thick sections acquired from the diaphragms to the sym physis. 5 mm thick coronal and sagittal reformats were acquired. For radiation dose reduction, the following was used: automated exposure control, adjustment of mA and/or kV according to patient size . COMPARISON: None. FINDINGS: Image quality: Excellent. ABDOMEN: Lung bases: Lung bases are clear. Heart size is normal. Solid organs: Liver and spleen are normal in size and enhancement. Gallbladder unremarkable Biliar y system is non dilated. Pancreas enhances normally. No adrenal nodules. Kidneys demonstrate garry l size and enhancement, without hydronephrosis. 3 cm left renal cortical cyst noted. Peritoneum and bowel: Bowel loops demonstrate normal wall thickness and caliber. No free fluid or a ir. Multiple diverticula arise from the sigmoid colon. Nodes and vessels: No retroperitoneal or mesenteric adenopathy by size criteria. Aorta and inferior vena cava are normal in size. Miscellaneous: No ventral hernias. PELVIS: Genitourinary: Bladder wall thickness is normal. Miscellaneous: No inguinal hernias or adenopathy. Bones: No suspicious bony lesions. No vertebral body compression fractures. Lower lumbar spine and interbody fusion and instrumentation with decompressive laminectomies. IMPRESSION: 1. No acute CT abdomen and pelvis findings. 2. Sigmoid diverticulosis without evidence of diverticulitis Reviewed by: Dheeraj Lagunas MD on 03/21/2021 5:06 PM [facility] Approved by: Dheeraj Lagunas MD on 03/21/2021 5:06 PM [facility] Station ID: [id number]
--- NOTE | 2021-03-21 18:10 | CT Report ---
PROCEDURE: HEAD WO INDICATIONS: some headache and lightheaded TECHNIQUE: Noncontrast 4.5 mm thick angled axial sections acquired from the foramen magnum to the vertex. For r adiation dose reduction, the following was used: automated exposure control, adjustment of mA and/or kV according to patient size. COMPARISON: July 02, 2020. FINDINGS: Image quality: Images are degraded by motion artifact. BRAIN PARENCHYMA: Redemonstrated Beam hardening artifact from the patient's aneurysm clip. Right fron evie encephalomalacia/gliosis. White matter hypoattenuation, compatible with the sequela microvascular ischemia. No acute cortical based (large territory) infarction, intracranial hemorrhage, or mass. Suggestion of a thin isodense extra-axial collection (series 5, image 23), measuring 3.4 mm in width. The density in the larger dural venous sinuses is grossly normal. VENTRICLES: No hydrocephalus. BONES/SINUSES: The skull base and calvarium demonstrate no acute abnormality. Bifrontal craniotomy ch anges are again seen. The paranasal sinuses and mastoid air cells are well aerated. IMPRESSION: 1.No acute intraparenchymal hemorrhage. 2.Small right parietal subdural hemorrhage as detailed above. Differential considerations include mot ion artifact. Consider short-term CT follow-up to ensure resolution. Findings were discussed with the ordering provider at the time of dictation. Reviewed by: Kota Jordan MD on 03/21/2021 6:09 PM [facility] Approved by: Kota Jordan MD on 03/21/2021 6:09 PM PST Station ID: [id number]
[2021-03-21 18:15] LABS: BILIRUBIN,URINE NEGATIVE (NEGATIVE); GLUCOSE, URINE (UA) NEGATIVE (NEGATIVE); KETONES,URINE (UA) NEGATIVE (NEGATIVE); LEUKOCYTE ESTERASE, URINE NEGATIVE (NEGATIVE); NITRITE,URINE NEGATIVE (NEGATIVE); OCCULT BLOOD,URINE NEGATIVE (NEGATIVE); PH,URINE 6.5 PH (5.0-7.5); PROTEIN,URINE NEGATIVE (NEGATIVE); UROBILINOGEN,URINE 0.2 (NORMAL) E.U./dL (NORMAL)
[2021-03-21 18:19] LABS: CLARITY,URINE CLEAR (CLEAR)
[2021-03-21] MEDS ORDERED: diazePAM INJ 5 MG/ML SYRINGE IVP STA (18:35)
[2021-03-21] MEDS ORDERED: IOPAMIDOL-300 100 ML VIAL IVP ONE (18:56)
[2021-03-21] MEDS ORDERED: KETOROLAC 15 MG/ML VIAL IVP STA (21:06)
--- NOTE | 2021-03-21 22:01 | CT Report ---
PROCEDURE: HEAD WO INDICATIONS: fall, possible head injury, compare to previous TECHNIQUE: Noncontrast 4.5 mm thick angled axial sections acquired from the foramen magnum to the vertex. For r adiation dose reduction, the following was used: automated exposure control, adjustment of mA and/or kV according to patient size. COMPARISON: None. FINDINGS: Image quality: Excellent. CSF spaces: Basal cisterns are patent. No extra-axial fluid collections. Ventricles are normal in size and shape. 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 Le ft frontal encephalomalacia stable. No midline shift. No intracranial masses or hemorrhage. Figueroa-wh ite matter interface is normal. Skull and face: Postsurgical changes compatible with frontal craniotomy and frontal sinus marsupializ ation stable compared to prior exam. Visualized facial bones are intact, without suspicious lesions. Sinuses: Visualized sinuses and mastoids are clear. IMPRESSION: 1. No acute intracranial disease process within limitations related to motion artifact. 2. No subdural hematoma identified within limitations related to motion artifact. 3. Stable postsurgical changes. Reviewed by: Leigha Briceno MD, PhD on 03/21/2021 9:59 PM PST Approved by: Leigha Briceno MD, PhD on 03/21/2021 9:59 PM PST Station ID: [id number]
[2021-03-21] MEDS ORDERED: oxyCODONE 5 MG TABLET PO STA (22:02)
--- NOTE | 2021-03-21 22:18 | ED Physician Documentation ---
ED Addendum - Addendum Addendum: 03/21/21 22:16 Case signed out to me, specifically to check result of a repeat head CT. The repeat head CT is interpreted by radiologist as "No acute intracranial disease process within limitations related to motion artifact. No subdural hematoma within limitations related to motion artifact". Patient reassessed, is in NAD (except for chronic back pain for which he is given 10mg oxycodone), and discharged after result of the follow up CT was reviewed with him.
[2021-03-21 22:24] VITALS: BP 130/90
== END 2021-03-21 22:24 | disposition home or self-care (01) ==
LOC: ED 15:33
DX: R10.30 Lower abdominal pain, unspecified (principal); R42 Dizziness and giddiness; I10 Essential (primary) hypertension
CPT/HCPCS: 36415; 70450; 74177; 80053; 81003; 83690; 85025; 96374; 96375; 99284; A9270; Q9967; 81001; 87086

== ENCOUNTER 2021-07-25 18:46 | Emergency (ER) | payer MEDICARE ==
[2021-07-25] MEDS ORDERED: DEXAMETHASONE 10 MG/ML VIAL PO STA (20:37)
[2021-07-25] MEDS ORDERED: KETAMINE 500 MG/10 ML VIAL IM STA (20:38)
--- NOTE | 2021-07-25 20:40 | ED Physician Documentation ---
PD HPI BACK PAIN - Stated complaint Stated Complaint: BACK PX - Chief complaint Chief Complaint: Back Pain - History obtained from History obtained from: Patient - History of Present Illness Timing - onset: How many weeks ago (2) Timing - duration: Weeks (2) Timing - details: Gradual onset Pain level max: 10 Pain level now: 10 Location: Lower, Right, Left Quality: Pain, Spasm, Similar to prior episodes Associated symptoms: No: Fever, Weakness, Numbness, Incontinent of urine, Unable to urinate, Hematuria, Incontinent of stool Improves with: Rest Worsened by: Movement Contributing factors: No: Lifting, Twisting, Trauma, Anticoagulated, Cancer, IVDA - Additional information Additional information: Patient is a 66-year-old male with a longstanding history of chronic back pain. 7 back surgeries in the past. Multiple plates and screws. He states about 2 weeks ago the pain increased. He has been doing physical therapy. He is on oxycodone at home for pain. Worse with movement, better with rest. Radiates to the bilateral lower extremities. No fever. No chills. No numbness or tingling. No loss of bowel or bladder control. No IV drug use. Worse with movement, better with rest. Review of Systems Constitutional: denies: Fever, Chills Throat: denies: Sore throat Cardiac: denies: Chest pain / pressure Respiratory: denies: Cough GI: denies: Nausea, Vomiting, Diarrhea Skin: denies: Rash Musculoskeletal: denies: Neck pain Neurologic: denies: Focal weakness, Numbness, Headache PD PAST MEDICAL HISTORY - Past Medical History Past Medical History: Yes Cardiovascular: Hypertension, Angina, Murmur Respiratory: None Neuro: Other Endocrine/Autoimmune: None GI: GERD, Hiatal hernia : None HEENT: Chronic hearing loss Psych: None Musculoskeletal: Osteoarthritis, Chronic back pain Derm: None - Past Surgical History Past Surgical History: Yes General: Colonoscopy Ortho: Knee replacement, Arthroscopic surgery, Spine surgery, Other Neuro: Craniotomy HEENT: Rhinoplasty - Present Medications Home Medications: Ambulatory Orders Medication Instructions Recorded Confirmed Acetaminophen [Tylenol] 325 mg PO Q6H PRN 10/17/12 07/02/20 Baclofen 5 mg PO BID 10/17/12 07/02/20 Omeprazole [PriLOSEC] 20 mg PO TID 10/17/12 07/02/20 oxyCODONE [Roxicodone] 10 mg PO Q4-6H PRN 10/17/12 07/02/20 Aspirin [Aspirin EC] 81 mg PO DAILY 05/15/20 07/02/20 Gabapentin [Neurontin] 200 mg PO TID 05/15/20 07/02/20 Melatonin 6 mg PO HS 05/15/20 07/02/20 Pravastatin [Pravachol] 40 mg PO DAILY 05/15/20 07/02/20 QUEtiapine [SEROquel] 100 mg PO 0800,1500 05/15/20 07/02/20 Senna [Senokot] 17.2 mg PO HS PRN 05/15/20 07/02/20 Valproic Acid 500 mg PO DAILY 05/15/20 07/02/20 Diclofenac Sodium [Voltaren] 2 gm TOP BID PRN 05/16/20 07/02/20 Quetiapine Fumarate [Seroquel] 200 mg PO QPM 05/16/20 07/02/20 Baclofen 5 mg PO BID 07/02/20 07/02/20 Ibuprofen [Motrin] 800 mg PO TID 07/02/20 07/02/20 methylPREDNISolone [Medrol] 4 mg PO DAILY #1 pkg 07/25/21 - Allergies Allergies/Adverse Reactions: Allergies Allergy/AdvReac Type Severity Reaction Status Date / Time hydromorphone [From Dilaudid] Allergy Unknown Verified 07/25/21 18:55 meperidine [From Demerol] Allergy Unknown Verified 07/25/21 18:55 - Social History Does the pt smoke?: No Smoking Status: Never smoker Does the pt drink ETOH?: Yes Does the pt have substance abuse?: No - Immunizations Immunizations are current?: No - POLST Patient has POLST: No PD ED PE NORMAL - Vitals Vital signs reviewed: Yes - General General: Alert and oriented X 3, No acute distress, Well developed/nourished - HEENT HEENT: PERRL, Moist mucous membranes - Neck Neck: Supple, no meningeal sign - Cardiac Cardiac: RRR, Strong equal pulses - Respiratory Respiratory: No respiratory distress, Clear bilaterally - Abdomen Abdomen: Soft, Non tender, Non distended - Back Back: Other (Tender palpation midline, L4-L5. No step-off or deformity. No skin changes. No swelling.) - Derm Derm: Warm and dry - Extremities Extremities: No edema, No calf tenderness / cord, Other (Normal bilateral lower extremity patellar and ankle jerk reflexes. Normal great toe extension bilaterally. no saddle anesthesia) - Neuro Neuro: Alert and oriented X 3, preparator 2-12 intact, No motor deficit, No sensory deficit, Normal speech - Psych Psych: Normal mood, Normal affect Results - Vitals Vitals: Vital Signs - 24 hr 07/25/21 07/25/21 18:56 23:02 Temperature 36.4 C L Heart Rate 56 L 68 Respiratory 18 18 Rate Blood Pressure 148/83 H 154/65 H O2 Saturation 99 98 Oxygen O2 Source Room air - Rads (name of study) CT lumbar spine Radiology: Final report received, EMP read contemporaneously, See rad report PD MEDICAL DECISION MAKING - ED course Complexity details: reviewed results, re-evaluated patient, considered differential, d/w patient ED course: 66-year-old male with chronic back pain. No loosening of the hardware or fracture of the hardware. No acute findings on CT scan. Does have a cyst in the inferior pole of the left kidney, the patient will follow up with his doctor for renal ultrasound or MRI. Patient was given ketamine and pain greatly improved. Will place on a Medrol Dosepak for home as well. We will have him follow-up with his doctor for further care. He is on oxycodone chronically at home. Patient ambulated without difficulty. Does not want any further pain medications for home. Patient counseled regarding signs and symptoms for which I believe and urgent re-evaluation would be necessary. Patient with good understanding of and agreement to plan and is comfortable going home at this time This document was made in part using voice recognition software. While efforts are made to proofread this document, sound alike and grammatical errors may occur. IMPRESSION: Pedicle screw fixation at L3-L5. Hardware is intact. No compression fracture. Multilevel DDD. Cyst at the inferior pole of the left kidney this is difficult to further characterize due to beam hardening artifact. Consider further evaluation with renal ultrasound or renal MRI. Departure - Departure Disposition: Home, Self Care Clinical Impression: Renal cyst Sciatica Qualifiers: Laterality: bilateral Qualified Code(s): M54.31 - Sciatica, right side Condition: Good Instructions: ED Sciatica Follow-Up: Terrence Anguiano MD [Primary Care Provider] - Within 1 week Prescriptions: methylPREDNISolone [Medrol] 4 mg PO DAILY #1 pkg Comments: Your prescription was sent to [facility] in [place]. Your CT scan does not show any acute abnormalities today. Your hardware is intact. Please follow-up with your doctor for further care. Continue your current medications at home. IMPRESSION: Pedicle screw fixation at L3-L5. Hardware is intact. No compression fracture. Multilevel DDD. Cyst at the inferior pole of the left kidney this is difficult to further characterize due to beam hardening artifact. Consider further evaluation with renal ultrasound or renal MRI. Discharge Date/Time: 07/25/21 23:13
[2021-07-25] MEDS ORDERED: IOVERSOL 320 100 ML VIAL IVP ONE (20:51)
--- NOTE | 2021-07-25 22:50 | CT Report ---
PROCEDURE: LUMBAR SPINE WO INDICATIONS: low back pain, 7 surgeries TECHNIQUE: Noncontrast 3 mm thick sections acquired from the T12 level to the sacrum. Sagittal and coronal refo rmats were constructed. For radiation dose reduction, the following was used: automated exposure co ntrol, adjustment of mA and/or kV according to patient size. COMPARISON: CT abdomen and pelvis 03/21/2021.. FINDINGS: Image quality: Good. Bones: Pedicle screws fixation at L3-L5. Hardware is stable in appearance. No hardware fracture. The compressive laminectomies. There is mild scoliosis. There is multilevel DDD. 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 No suspicious lesion. Soft tissues: No retroperitoneal masses or hematomas. Visualized aorta is normal in caliber. Modera te plaque. Diverticulosis. Left kidney inferior pole cyst measuring approximately 2.5 cm, (09/21). Den sity is difficult to measure due to beam hardening artifact. No calcification in the liver. IMPRESSION: Pedicle screw fixation at L3-L5. Hardware is intact. No compression fracture. Multilevel DDD. Cyst at the inferior pole of the left kidney this is difficult to further characterize due to beam trammell rdening artifact. Consider further evaluation with renal ultrasound or renal MRI. Reviewed by: Bennett Najera MD on 07/25/2021 10:48 PM PDT Approved by: Bennett Najera MD on 07/25/2021 10:48 PM PDT Station ID: [id number]
[2021-07-25 23:03] VITALS: BP 154/65
== END 2021-07-25 23:13 | disposition home or self-care (01) ==
LOC: ED 18:46
DX: M54.50 Low back pain, unspecified (principal); G89.29 Other chronic pain; M54.31 Sciatica, right side; N28.1 Cyst of kidney, acquired; I10 Essential (primary) hypertension
CPT/HCPCS: 96372; 99284

== ENCOUNTER 2022-01-31 17:43 | Emergency (ER) | payer MEDICARE ==
--- NOTE | 2022-01-31 18:06 | ED Physician Documentation ---
History of Present Illness - Stated complaint Stated Complaint: FEVER/SOA - Chief complaint Chief Complaint: Resp - History obtained from History obtained from: Patient - Additonal information Additional information: This is a 66-year-old gentleman presents for the evaluation of fever and cough and some shortness of breath. History is difficult because he is profoundly deaf and even with his hearing aids we are communicating by writing. I saw him on the seventh of this month at which point he had some trauma but also sore throat and body aches. He was found to have a right lower lobe pneumonia and was started on amoxicillin and doxycycline. He was feeling better while on the antibiotics but symptoms recurred about 3 days ago with productive cough, sore throat and ear pain as well as chills. He had a 101 temperature at home which is not corroborated here. Review of Systems Ten Systems: 10 systems reviewed and negative Constitutional: reports: Fever, Chills Nose: reports: Rhinorrhea / runny nose, Congestion Throat: reports: Sore throat Respiratory: reports: Dyspnea, Cough PD PAST MEDICAL HISTORY - Past Medical History Cardiovascular: Hypertension, Angina, Murmur Respiratory: None Neuro: Other Endocrine/Autoimmune: None GI: GERD, Hiatal hernia : None HEENT: Chronic hearing loss Psych: None Musculoskeletal: Osteoarthritis, Chronic back pain Derm: None - Past Surgical History Past Surgical History: Yes General: Colonoscopy Ortho: Knee replacement, Arthroscopic surgery, Spine surgery, Other Neuro: Craniotomy HEENT: Rhinoplasty - Present Medications Home Medications: Ambulatory Orders Medication Instructions Recorded Confirmed Acetaminophen [Tylenol] 325 mg PO Q6H PRN 10/17/12 07/02/20 Baclofen 5 mg PO BID 10/17/12 07/02/20 Omeprazole [PriLOSEC] 20 mg PO TID 10/17/12 07/02/20 oxyCODONE [Roxicodone] 10 mg PO Q4-6H PRN 10/17/12 07/02/20 Aspirin [Aspirin EC] 81 mg PO DAILY 05/15/20 07/02/20 Gabapentin [Neurontin] 200 mg PO TID 05/15/20 07/02/20 Melatonin 6 mg PO HS 05/15/20 07/02/20 Pravastatin [Pravachol] 40 mg PO DAILY 05/15/20 07/02/20 QUEtiapine [SEROquel] 100 mg PO 0800,1500 05/15/20 07/02/20 Senna [Senokot] 17.2 mg PO HS PRN 05/15/20 07/02/20 Valproic Acid 500 mg PO DAILY 05/15/20 07/02/20 Diclofenac Sodium [Voltaren] 2 gm TOP BID PRN 05/16/20 07/02/20 Quetiapine Fumarate [Seroquel] 200 mg PO QPM 05/16/20 07/02/20 Baclofen 5 mg PO BID 07/02/20 07/02/20 Ibuprofen [Motrin] 800 mg PO TID 07/02/20 07/02/20 methylPREDNISolone [Medrol] 4 mg PO DAILY #1 pkg 07/25/21 Amoxicillin 2 tab PO TID #42 cap 01/13/22 Doxycycline Hyclate 100 mg PO BID #14 cap 01/13/22 levoFLOXacin [Levofloxacin] 750 mg PO DAILY #6 tablet 01/31/22 - Allergies Allergies/Adverse Reactions: Allergies Allergy/AdvReac Type Severity Reaction Status Date / Time hydromorphone [From Dilaudid] Allergy Unknown Verified 01/31/22 17:49 meperidine [From Demerol] Allergy Unknown Verified 01/31/22 17:49 - Social History Does the pt smoke?: No Smoking Status: Never smoker Does the pt drink ETOH?: Yes Does the pt have substance abuse?: No - Immunizations Immunizations are current?: No - POLST Patient has POLST: No PD ED PE NORMAL - Vitals Vital signs reviewed: Yes (Hypertensive, otherwise unremarkable vitals) - General General: Alert and oriented X 3, No acute distress - HEENT HEENT: Other (TMs and oropharynx appear normal) - Cardiac Cardiac: RRR, No murmur - Respiratory Respiratory: No respiratory distress, Other (Crackles at the right base) - Abdomen Abdomen: Non tender, Non distended - Derm Derm: No rash - Extremities Extremities: No edema, No calf tenderness / cord - Neuro Neuro: Alert and oriented X 3, Normal speech Results - Vitals Vitals: Vital Signs - 24 hr 01/31/22 01/31/22 01/31/22 17:49 17:54 18:30 Temperature 37.1 C Heart Rate 63 51 L 55 L Respiratory 16 15 Rate Blood Pressure 170/90 H 179/94 H 166/96 H O2 Saturation 96 99 99 Oxygen O2 Source Room air - Labs Labs: Laboratory Tests 01/31/22 01/31/22 18:13 18:13 WBC 10.4 RBC 4.30 L Hgb 13.1 L Hct 40.6 L MCV 94.4 H MCH 30.5 MCHC 32.3 RDW 13.7 Plt Count 358 MPV 10.6 Neut # (Auto) 5.4 Lymph # (Auto) 3.8 H Todd # (Auto) 0.9 Eos # (Auto) 0.2 Baso # (Auto) 0.1 Absolute Nucleated RBC 0.00 Nucleated RBC % 0.0 Sodium 140 Potassium 4.1 Chloride 104 Carbon Dioxide 25 Anion Gap 11.0 BUN 28 H Creatinine 1.1 Estimated GFR (MDRD) 67 L Glucose 107 H Calcium 10.0 - Rads (name of study) Ill-defined patchy right basilar infiltrate on chest x-ray, 2 views Radiology: EMP read contemporaneously PD MEDICAL DECISION MAKING - ED course ED course: 66-year-old gentleman with known pneumonia pneumonia was improving on antibiotics but now seems to have relapsed after the cessation of antibiotics and he is started on Levaquin. His labs are improved compared with the previous visit, on his last visit his white count was 15,800 and now it is 10,000. The patient Was counseled as to the diagnosis and need for follow-up. I counseled the patient with regard to signs and symptoms that would necessitate an urgent reevaluation in the emergency department. They understand they are welcome to return at any time if worse or if not improving as expected. This document was made in part using voice recognition software. While efforts are made to proofread this documents, sound alike and grammatical errors may occur. Departure - Departure Disposition: 01 Home, Self Care Clinical Impression: Pneumonia Qualifiers: Pneumonia type: due to unspecified organism Laterality: right Lung location: lower lobe of lung Qualified Code(s): J18.9 - Pneumonia, unspecified organism Condition: Good Record reviewed to determine appropriate education?: Yes Instructions: ED Pneumonia Adult Prescriptions: levoFLOXacin [Levofloxacin] 750 mg PO DAILY #6 tablet Comments: Your blood work is actually looking better than it was 2 weeks ago, we still see evidence of the pneumonia on x-ray. I am starting a different antibiotic. Follow-up with your doctor Sunday or [place] for recheck. Consider repeat chest x-ray in 4 to 6 weeks to evaluate for resolution, if having persistent problems talk with your doctor about pulmonology consultation. Return for new or wo rsening symptoms. Discharge Date/Time: 01/31/22 19:25
[2022-01-31 18:19] LABS: BASOPHILS # (AUTO) 0.1 10^3/uL (0.0-0.1); BASOPHILS % (AUTO) 1.1 %; EOSINOPHILS # (AUTO) 0.2 10^3/uL (0.0-0.7); EOSINOPHILS % (AUTO) 1.6 %; HCT - HEMATOCRIT 40.6 % (42.0-52.0); HGB - HEMOGLOBIN 13.1 g/dL (14.0-18.0); LYMPHOCYTES # (AUTO) 3.8 10^3/uL (1.5-3.5); LYMPHOCYTES % (AUTO) 36.7 %; MEAN CORPUSCULAR HEMOGLOBIN 30.5 pg (27.0-31.0); MEAN CORPUSCULAR HGB CONC 32.3 g/dL (32.0-36.0); MEAN CORPUSCULAR VOLUME 94.4 fL (80.0-94.0); MEAN PLATELET VOLUME 10.6 fL (7.4-11.4); MONOCYTES # (AUTO) 0.9 10^3/uL (0.0-1.0); MONOCYTES % (AUTO) 8.5 %; NEUTROPHILS # (AUTO) 5.4 10^3/uL (1.5-6.6); NEUTROPHILS % (AUTO) 51.6 %; PLT - PLATELET COUNT 358 10^3/uL (130-450); RED CELL DISTRIBUTION WIDTH 13.7 % (12.0-15.0); WHITE BLOOD COUNT 10.4 x10^3/uL (4.8-10.8)
[2022-01-31 18:28] LABS: CREATININE 1.1 mg/dL (0.6-1.2); POTASSIUM 4.1 mmol/L (3.5-5.0)
--- NOTE | 2022-01-31 18:44 | XRAY Report ---
PROCEDURE: Chest 2 View X-Ray INDICATIONS: cough fever, recent pna TECHNIQUE: 2 view(s) of the chest. COMPARISON: 07/02/2020. FINDINGS: Surgical changes and devices: None. Lungs and pleura: No pleural effusions or pneumothorax. Ill-defined patchy airspace opacities are se en scattered in right upper and lower lung coleman. Mediastinum: Mildly tortuous thoracic aorta is seen. Heart size is normal. Bones and chest wall: No suspicious bony abnormalities. Soft tissues appear unremarkable. IMPRESSION: Finding is suggestive of ill-defined patchy right-sided pulmonary infiltrates. No pleura l effusion or pneumothorax. Reviewed by: Edgardo Tomas MD on 01/31/2022 6:43 PM PDT Approved by: Edgardo Tomas MD on 01/31/2022 6:43 PM PDT Station ID: [id number]
[2022-01-31] MEDS ORDERED: levoFLOXacin 250 MG TABLET PO STA (19:04)
[2022-01-31 19:16] VITALS: BP 166/96
== END 2022-01-31 19:25 | disposition home or self-care (01) ==
LOC: ED 17:43
DX: J18.9 Pneumonia, unspecified organism (principal); H91.93 Unspecified hearing loss, bilateral; I10 Essential (primary) hypertension
CPT/HCPCS: 36415; 71046; 80048; 85025; 99284; A9270

== ENCOUNTER 2022-02-28 11:07 | Outpatient (CLI) | payer MEDICARE ==
--- NOTE | 2022-02-28 13:46 | XRAY Report ---
PROCEDURE: Chest 2 View X-Ray INDICATIONS: Pneumonia TECHNIQUE: 2 views of the chest were acquired. COMPARISON: None FINDINGS: Surgical changes and devices: None. Lungs and pleura: No pleural effusions or pneumothorax. Lungs are clear. Mediastinum: Mediastinal contours are normal. Heart size is normal. The aorta is tortuous. Bones and chest wall: No suspicious bony abnormalities. Soft tissues appear unremarkable. IMPRESSION: No acute cardiopulmonary abnormality. Reviewed by: Leonides Bland on 02/28/2022 1:[address] [facility] Approved by: Leonides Bland on 02/28/2022 1:[address] [facility] Station ID: [id number]
== END 2022-02-28 11:08 | disposition home or self-care (01) ==
LOC: DI.S 11:07
PROVIDERS: ATTEND Nurse Practitioner Family
DX: J18.9 Pneumonia, unspecified organism (principal)

== ENCOUNTER 2022-04-10 13:04 | Emergency (ER) | payer MEDICARE ==
[2022-04-10 13:23] VITALS: BP 170/80
[2022-04-10 14:25] LABS: B. PARAPERTUSSIS- RESP PCR PAN NOT DETECTED; B. PERTUSSIS- RESP PCR PANEL NOT DETECTED; C. PNEUMONIAE- RESP PCR PANEL NOT DETECTED; CORONAVIRUS 229E-RESP PCR NOT DETECTED; CORONAVIRUS HKU1-RESP PCR NOT DETECTED; CORONAVIRUS NL63-RESP PCR NOT DETECTED; CORONAVIRUS OC43-RESP PCR NOT DETECTED; HUMAN METAPNEUMOVIRUS NOT DETECTED; INFLUENZA A- RESP PCR PANEL NOT DETECTED; INFLUENZA B - RESP PCR PANEL NOT DETECTED; M. PNEUMONIAE- RESP PCR PANEL NOT DETECTED; PARAINFLUENZA VIRUS 1 NOT DETECTED; PARAINFLUENZA VIRUS 2 NOT DETECTED; PARAINFLUENZA VIRUS 3 NOT DETECTED; PARAINFLUENZA VIRUS 4 NOT DETECTED; RHINOVIRUS/ENTEROVIRUS NOT DETECTED; RSV- RESP PCR PANEL NOT DETECTED; SARS-CoV-2 -RESP PCR PANEL NOT DETECTED
--- NOTE | 2022-04-10 15:21 | ED Physician Documentation ---
History of Present Illness - Stated complaint Stated Complaint: SORE THROAT,COUGH - Chief complaint Chief Complaint: Resp - History obtained from History obtained from: Patient - Additonal information Additional information: He has a history of subarachnoid hemorrhage, GERD, hypertension, deafness and tobacco abuse. He has been sick for about a week with productive cough, body aches, fevers and chills. He was exposed to COVID by a housemate. Review of Systems Ten Systems: 10 systems reviewed and negative Constitutional: reports: Chills, Myalgias, Fatigue. denies: Fever Nose: reports: Rhinorrhea / runny nose Throat: reports: Sore throat Respiratory: reports: Dyspnea, Cough PD PAST MEDICAL HISTORY - Past Medical History Past Medical History: Yes Cardiovascular: Hypertension, Angina, Murmur Respiratory: None Neuro: Other Endocrine/Autoimmune: None GI: GERD, Hiatal hernia : None HEENT: Chronic hearing loss Psych: None Musculoskeletal: Osteoarthritis, Chronic back pain Derm: None - Past Surgical History Past Surgical History: Yes General: Colonoscopy Ortho: Knee replacement, Arthroscopic surgery, Spine surgery, Other Neuro: Craniotomy HEENT: Rhinoplasty - Present Medications Home Medications: Ambulatory Orders Medication Instructions Recorded Confirmed Acetaminophen [Tylenol] 325 mg PO Q6H PRN 10/17/12 07/02/20 Baclofen 5 mg PO BID 10/17/12 07/02/20 Omeprazole [PriLOSEC] 20 mg PO TID 10/17/12 07/02/20 oxyCODONE [Roxicodone] 10 mg PO Q4-6H PRN 10/17/12 07/02/20 Aspirin [Aspirin EC] 81 mg PO DAILY 05/15/20 07/02/20 Gabapentin [Neurontin] 200 mg PO TID 05/15/20 07/02/20 Melatonin 6 mg PO HS 05/15/20 07/02/20 Pravastatin [Pravachol] 40 mg PO DAILY 05/15/20 07/02/20 QUEtiapine [SEROquel] 100 mg PO 0800,1500 05/15/20 07/02/20 Senna [Senokot] 17.2 mg PO HS PRN 05/15/20 07/02/20 Valproic Acid 500 mg PO DAILY 05/15/20 07/02/20 Diclofenac Sodium [Voltaren] 2 gm TOP BID PRN 05/16/20 07/02/20 Quetiapine Fumarate [Seroquel] 200 mg PO QPM 05/16/20 07/02/20 Baclofen 5 mg PO BID 07/02/20 07/02/20 Ibuprofen [Motrin] 800 mg PO TID 07/02/20 07/02/20 methylPREDNISolone [Medrol] 4 mg PO DAILY #1 pkg 07/25/21 Amoxicillin 2 tab PO TID #42 cap 01/13/22 Doxycycline Hyclate 100 mg PO BID #14 cap 01/13/22 levoFLOXacin [Levofloxacin] 750 mg PO DAILY #6 tablet 01/31/22 Benzonatate [Tessalon] 200 mg PO TID PRN #20 cap 04/10/22 Doxycycline [Vibramycin] 100 mg PO BID #14 tablet 04/10/22 predniSONE [Deltasone] 60 mg PO DAILY 5 Days #15 tablet 04/10/22 - Allergies Allergies/Adverse Reactions: Allergies Allergy/AdvReac Type Severity Reaction Status Date / Time hydromorphone [From Dilaudid] Allergy Unknown Verified 04/10/22 13:18 meperidine [From Demerol] Allergy Unknown Verified 04/10/22 13:18 - Social History Does the pt smoke?: No Smoking Status: Never smoker Does the pt drink ETOH?: Yes Does the pt have substance abuse?: No - Immunizations Immunizations are current?: No - POLST Patient has POLST: No PD ED PE NORMAL - Vitals Vital signs reviewed: Yes - General General: Alert and oriented X 3, No acute distress - Cardiac Cardiac: RRR, No murmur - Respiratory Respiratory: No respiratory distress, Other (Mild expiratory wheezes at the bases, no other focal findings, nonlabored) - Back Back: No CVA TTP, No spinal TTP - Derm Derm: Normal color, Warm and dry - Extremities Extremities: No edema, No calf tenderness / cord - Neuro Neuro: Alert and oriented X 3, Normal speech Results - Vitals Vitals: Vital Signs - 24 hr 04/10/22 13:18 Temperature 36.9 C Heart Rate 63 Respiratory 18 Rate Blood Pressure 170/80 H O2 Saturation 100 Oxygen O2 Source Room air - Labs Labs: Laboratory Tests 04/10/22 13:23 Nasal Adenovirus (PCR) NOT DETECTED Nasal B. parapertussis DNA (PCR) NOT DETECTED Nasal Coronavir 229E PCR NOT DETECTED Nasal Coronavir HKU1 PCR NOT DETECTED Nasal Coronavir NL63 PCR NOT DETECTED Nasal Coronavir OC43 PCR NOT DETECTED Nasal Enterovir/Rhinovir PCR NOT DETECTED Nasal Influenza B PCR NOT DETECTED Nasal Influenza A PCR NOT DETECTED Nasal Parainfluen 1 PCR NOT DETECTED Nasal Parainfluen 2 PCR NOT DETECTED Nasal Parainfluen 3 PCR NOT DETECTED Nasal Parainfluen 4 PCR NOT DETECTED Nasal RSV (PCR) NOT DETECTED Nasal B.pertussis DNA PCR NOT DETECTED Nasal C.pneumoniae (PCR) NOT DETECTED Bull Human Metapneumo PCR NOT DETECTED Nasal M.pneumoniae (PCR) NOT DETECTED Nasal SARS-CoV-2 (PCR) NOT DETECTED PD Medical Decision Making - ED course ED course: 67-year-old gentleman with cough and wheezing, I he may well have a underlying COPD. He was COVID-negative here but we will treat him with steroids and antibiotics. Departure - Departure Disposition: 01 Home, Self Care Clinical Impression: Bronchitis Condition: Good Record reviewed to determine appropriate education?: Yes Instructions: ED Upper Resp Infec Abx Tx Prescriptions: predniSONE [Deltasone] 60 mg PO DAILY 5 Days #15 tablet Benzonatate [Tessalon] 200 mg PO TID PRN #20 cap PRN Reason: Cough Doxycycline [Vibramycin] 100 mg PO BID #14 tablet Comments: Call your doctor to arrange a follow-up appointment, make the next available appointment. In the interim, return anytime if worse or if new symptoms develop.
== END 2022-04-10 15:23 | disposition home or self-care (01) ==
LOC: ED 13:04
DX: J40 Bronchitis, not specified as acute or chronic (principal); I10 Essential (primary) hypertension; Z20.822 Contact with and (suspected) exposure to COVID-19; F17.200 Nicotine dependence, unspecified, uncomplicated
CPT/HCPCS: 87633; 99283

== ENCOUNTER 2022-04-26 14:53 | Outpatient (CLI) | payer MEDICARE ==
--- NOTE | 2022-04-26 16:45 | CT Report ---
PROCEDURE: LUMBAR SPINE WO INDICATIONS: LOW BACK PAIN TECHNIQUE: Noncontrast 3 mm thick sections acquired from the T12 level to the sacrum. Sagittal and coronal refo rmats were constructed. For radiation dose reduction, the following was used: automated exposure co ntrol, adjustment of mA and/or kV according to patient size. COMPARISON: CT lumbar spine 07/25/2021 FINDINGS: Image quality: There is limited visualization of the spine secondary to artifact from spinal fusion hardware artifact. Bones: No visualized fracture or dislocation. Posterior fusion is present at L3-L5. There is no evide nce of hardware fracture or periprosthetic lucency to suggest loosening. Osseous fusion is noted at L 1-2. There is thoracolumbar scoliotic curvature unchanged. Mild disc bulges are present at L1-2, L2-3, and likely L5-S1. Significant artifact is present L3-4 an d L4-5, limiting evaluation. There is moderate spinal stenosis at L1-2, moderate to severe L2-3, like ly at least mild at L3-4 and potentially mild to moderate L4-5 stenosis however significantly obscure d by artifact. Severe right and moderate to severe left foraminal narrowing is present at L1-2, moder ate to severe left and moderate right L2-3, moderate narrowing through the subarticular recess on the right at L3-4 and mild foraminal narrowing at L3-4, moderate bilateral L4-5, moderate to severe bila teral, right greater than left L5-S1. Multilevel facet arthropathy is present. Soft tissues: Low-attenuation focus is present within the inferior left kidney likely related to simp le cyst. It is unchanged.. Visualized aorta is normal in caliber. Diverticulosis is present. IMPRESSION: Multilevel disc bulges. Postsurgical changes with hardware intact at L3-L5. Multilevel foraminal narrowing most severe at L5-S1 secondary to facet arthropathy. Multilevel spinal stenosis secondary to disc bulge with contributing effect of facet/ligament of flav um arthropathy. Most severe at L2-3. Reviewed by: Nissa Mathews MD on 04/26/2022 4:44 PM PST Approved by: Nissa Mathews MD on 04/26/2022 4:44 PM PST Station ID: [id number]
== END 2022-04-26 14:54 | disposition home or self-care (01) ==
LOC: DI 14:53
PROVIDERS: ATTEND Nurse Practitioner Family
DX: M47.817 Spondylosis without myelopathy or radiculopathy, lumbosacral region (principal); M48.061 Spinal stenosis, lumbar region without neurogenic claudication; M48.07 Spinal stenosis, lumbosacral region; Z98.1 Arthrodesis status

== ENCOUNTER 2022-09-02 15:53 | Emergency (ER) | payer MEDICARE ==
[2022-09-02] MEDS ORDERED: MORPHINE 2 MG/ML CARPUJECT IVP STA ×2 (16:17→18:02)
--- NOTE | 2022-09-02 16:19 | ED Physician Documentation ---
PD HPI HEAD INJURY - Stated complaint Stated Complaint: FALL/HIT HEAD - Chief complaint Chief Complaint: Trauma Hd/Nk - History obtained from History obtained from: Patient - Additional information Additional information: 67-year-old gentleman with history of tobacco abuse, significant hearing loss, subarachnoid hemorrhage related to aneurysm. He blacked out 3 nights ago while getting off the toilet. He was pulling up his gym shorts and fell forward hitting his head on the left side. Last night he was going to bed and he felt dizzy and put his arms down in his bed and he may have blacked out then again 2. He does have a severe headache which he thinks is from hitting his head. He does have neck pain. He has some numbness in the left arm. PD PAST MEDICAL HISTORY - Past Medical History Cardiovascular: Hypertension, Angina, Murmur Respiratory: None Neuro: Other Endocrine/Autoimmune: None GI: GERD, Hiatal hernia : None HEENT: Chronic hearing loss Psych: None Musculoskeletal: Osteoarthritis, Chronic back pain Derm: None - Past Surgical History Past Surgical History: Yes General: Colonoscopy Ortho: Knee replacement, Arthroscopic surgery, Spine surgery, Other Neuro: Craniotomy HEENT: Rhinoplasty - Present Medications Home Medications: Ambulatory Orders Medication Instructions Recorded Confirmed Acetaminophen [Tylenol] 325 mg PO Q6H PRN 10/17/12 07/02/20 Baclofen 5 mg PO BID 10/17/12 07/02/20 Omeprazole [PriLOSEC] 20 mg PO TID 10/17/12 07/02/20 oxyCODONE [Roxicodone] 10 mg PO Q4-6H PRN 10/17/12 07/02/20 Aspirin [Aspirin EC] 81 mg PO DAILY 05/15/20 07/02/20 Gabapentin [Neurontin] 200 mg PO TID 05/15/20 07/02/20 Melatonin 6 mg PO HS 05/15/20 07/02/20 Pravastatin [Pravachol] 40 mg PO DAILY 05/15/20 07/02/20 QUEtiapine [SEROquel] 100 mg PO 0800,1500 05/15/20 07/02/20 Senna [Senokot] 17.2 mg PO HS PRN 05/15/20 07/02/20 Valproic Acid 500 mg PO DAILY 05/15/20 07/02/20 Diclofenac Sodium [Voltaren] 2 gm TOP BID PRN 05/16/20 07/02/20 Quetiapine Fumarate [Seroquel] 200 mg PO QPM 05/16/20 07/02/20 Baclofen 5 mg PO BID 07/02/20 07/02/20 Ibuprofen [Motrin] 800 mg PO TID 07/02/20 07/02/20 methylPREDNISolone [Medrol] 4 mg PO DAILY #1 pkg 07/25/21 Amoxicillin 2 tab PO TID #42 cap 01/13/22 Doxycycline Hyclate 100 mg PO BID #14 cap 01/13/22 levoFLOXacin [Levofloxacin] 750 mg PO DAILY #6 tablet 01/31/22 Benzonatate [Tessalon] 200 mg PO TID PRN #20 cap 04/10/22 Doxycycline [Vibramycin] 100 mg PO BID #14 tablet 04/10/22 predniSONE [Deltasone] 60 mg PO DAILY 5 Days #15 tablet 04/10/22 - Allergies Allergies/Adverse Reactions: Allergies Allergy/AdvReac Type Severity Reaction Status Date / Time hydromorphone [From Dilaudid] Allergy Unknown Verified 04/10/22 13:18 meperidine [From Demerol] Allergy Unknown Verified 04/10/22 13:18 - Social History Does the pt smoke?: No Smoking Status: Never smoker Does the pt drink ETOH?: Yes Does the pt have substance abuse?: No - Immunizations Immunizations are current?: No - POLST Patient has POLST: No PD ED PE NORMAL - Vitals Vital signs reviewed: Yes - General General: Alert and oriented X 3 (Very hard of hearing but communicative with reading lips) - HEENT HEENT: PERRL, EOMI - Neck Neck: Other (Tender to the low C-spine, collar placed right after exam) - Cardiac Cardiac: RRR, No murmur - Respiratory Respiratory: No respiratory distress, Clear bilaterally - Abdomen Abdomen: Non tender - Back Back: No CVA TTP, No spinal TTP - Derm Derm: Normal color, Warm and dry - Extremities Extremities: No edema, No calf tenderness / cord - Neuro Neuro: Alert and oriented X 3, No motor deficit, No sensory deficit Eye Opening: Spontaneous Motor: Obeys Commands Verbal: Oriented GCS Score: 15 - Psych Psych: Normal mood, Normal affect Results - Vitals Vitals: Vital Signs - 24 hr 09/02/22 09/02/22 09/02/22 15:56 17:36 18:00 Temperature 36.2 C L Heart Rate 55 L 93 57 L Respiratory 18 24 13 Rate Blood Pressure 144/83 H 169/65 H 137/94 H O2 Saturation 97 100 97 Oxygen O2 Source Room air - EKG (time done) 1619 EKG releavant findings:: EKG personally interpreted by author of this note. Relevant findings are: Rate: Rate (enter#) (57) Rhythm: NSR, LAE Reserve: Normal Intervals: Normal NC Ischemia: Non specific changes. No: ST elevation c/w ischemia, ST depression - Labs Labs: Laboratory Tests 09/02/22 09/02/22 16:19 16:19 WBC 8.0 RBC 4.69 L Hgb 13.5 L Hct 41.8 L MCV 89.1 MCH 28.8 MCHC 32.3 RDW 13.7 Plt Count 266 MPV 11.2 Neut # (Auto) 4.6 Lymph # (Auto) 2.4 Craig # (Auto) 0.7 Eos # (Auto) 0.1 Baso # (Auto) 0.1 Absolute Nucleated RBC 0.00 Nucleated RBC % 0.0 Sodium 142 Potassium 3.5 Chloride 108 Carbon Dioxide 29 Anion Gap 5.0 L BUN 18 Creatinine 0.9 Estimated GFR (MDRD) 84 L Glucose 113 H Calcium 8.5 Total Bilirubin 0.3 AST 16 ALT 12 Alkaline Phosphatase 112 Total Protein 7.3 Albumin 4.1 Globulin 3.2 Albumin/Globulin Ratio 1.3 Ethyl Alcohol < 5.0 PD Medical Decision Making - ED course Complexity details: reviewed results (CBC demonstrates mild anemia with hemoglobin of 13.5. This is actually the best value he has had in a couple of years. CMP grossly normal. Blood alcohol level negative/normal.) ED course: 67-year-old gentleman had syncopal episode with a head injury. Nothing in the history or physical to suggest to life-threatening cause of syncope, and relevant imaging was negative. Departure - Departure Disposition: 01 Home, Self Care Clinical Impression: Head trauma, Injury of head and neck, Syncope Instructions: ED Head Injury Closed, ED Fainting Unkn Cause Comments: CAT scans of the head and neck were without evidence of acute trauma. Labs were unremarkable. EKG also. Call your doctor to arrange a follow-up appointment, make the next available appointment. In the interim, return anytime if worse or if new symptoms develop. Discharge Date/Time: 09/02/22 18:56
[2022-09-02 16:25] LABS: BASOPHILS # (AUTO) 0.1 10^3/uL (0.0-0.1); EOSINOPHILS # (AUTO) 0.1 10^3/uL (0.0-0.7); EOSINOPHILS % (AUTO) 1.5 %; HCT - HEMATOCRIT 41.8 % (42.0-52.0); HGB - HEMOGLOBIN 13.5 g/dL (14.0-18.0); LYMPHOCYTES # (AUTO) 2.4 10^3/uL (1.5-3.5); LYMPHOCYTES % (AUTO) 30.4 %; MEAN CORPUSCULAR HEMOGLOBIN 28.8 pg (27.0-31.0); MEAN CORPUSCULAR HGB CONC 32.3 g/dL (32.0-36.0); MEAN CORPUSCULAR VOLUME 89.1 fL (80.0-94.0); MEAN PLATELET VOLUME 11.2 fL (7.4-11.4); MONOCYTES # (AUTO) 0.7 10^3/uL (0.0-1.0); NEUTROPHILS # (AUTO) 4.6 10^3/uL (1.5-6.6); PLT - PLATELET COUNT 266 10^3/uL (130-450); RED BLOOD COUNT 4.69 10^6/uL (4.70-6.10); RED CELL DISTRIBUTION WIDTH 13.7 % (12.0-15.0)
[2022-09-02 16:36] LABS: ALBUMIN 4.1 g/dL (3.2-5.5); ALBUMIN/GLOBULIN RATIO 1.3 (1.0-2.2); ALKALINE PHOSPHATASE 112 IU/L (42-121); ALT ALANINE AMINOTRANSFERASE 12 IU/L (10-60); AST ASPARTATE AMINOTRANSFERASE 16 IU/L (10-42); BILIRUBIN,TOTAL 0.3 mg/dL (0.2-1.0); BUN - BLOOD UREA NITROGEN 18 mg/dL (6-20); CALCIUM 8.5 mg/dL (8.5-10.3); CARBON DIOXIDE - CO2 29 mmol/L (21-32); CHLORIDE 108 mmol/L (101-111); CREATININE 0.9 mg/dL (0.6-1.2); ETOH - ETHANOL < 5.0 mg/dL; GFR - MDRD 84 (>89); GLUCOSE 113 mg/dL (70-100); POTASSIUM 3.5 mmol/L (3.5-5.0); SODIUM 142 mmol/L (135-145); TOTAL PROTEIN 7.3 g/dL (6.7-8.2)
--- NOTE | 2022-09-02 17:56 | CT Report ---
PROCEDURE: CERVICAL SPINE WO INDICATIONS: head inj TECHNIQUE: Noncontrast 3 mm thick sections acquired from the skull base to the T4 level. Sagittal and coronal r eformats were then constructed. For radiation dose reduction, the following was used: automated exp osure control, adjustment of mA and/or kV according to patient size. COMPARISON: None. FINDINGS: Image quality: Excellent. Bones: No fractures or dislocations. Degenerative change at the atlantodental interval. Intact crani ocervical junction and mild degenerative changes in the left occipital condyle articulation. Severe multilevel degenerative disc height loss from C3 through C7 and into the thoracic spine. There is facet arthropathy and trace retrolisthesis C3 on 4. Cervical spine is otherwise aligned. Visualiz ed superior ribs are intact. Soft tissues: Prevertebral soft tissues are normal in thickness. No paravertebral hematomas. No ap ical pneumothoraces. IMPRESSION: 1. No CT evidence of acute cervical spine injury. 2. Severe multilevel degenerative disc and endplate changes. Reviewed by: Yesenia Lopez MD on 09/02/2022 4:55 PM ELISABETH Approved by: Yesenia Lopez MD on 09/02/2022 4:55 PM ELISABETH Station ID: [id number]
[2022-09-02 18:15] VITALS: BP 137/94
--- NOTE | 2022-09-02 18:18 | CT Report ---
PROCEDURE: HEAD WO INDICATIONS: head inj TECHNIQUE: Noncontrast 4.5 mm thick angled axial sections acquired from the foramen magnum to the vertex. For r adiation dose reduction, the following was used: automated exposure control, adjustment of mA and/or kV according to patient size. COMPARISON: 01/13/2022 FINDINGS: Image quality: Excellent. CSF spaces: Basal cisterns are patent. No extra-axial fluid collections. Ventricles are normal in size and shape. Brain: No midline shift. No intracranial masses or hemorrhage. Figueroa-white matter interface is norm al. There are aneurysm clips in the region of the anterior cerebral arteries. There is encephalomala angela in the right frontal lobe near the vertex consistent with a prior ventriculostomy tract with over lying bone changes. Skull and face: Extensive surgical changes in the bifrontal calvarium. No evidence of acute fracture. Sinuses: There is iatrogenic opacification of both frontal sinuses. Visualized sinuses and mastoids are otherwise clear. IMPRESSION: 1. No CT evidence of acute intracranial trauma. 2. There are extensive surgical changes without acute findings. 3. No evidence of significant soft tissue injury or underlying calvarial fracture. Reviewed by: Yesenia Lopez MD on 09/02/2022 5:17 PM ELISABETH Approved by: Yesenia Lopez MD on 09/02/2022 5:17 PM ELISABETH Station ID: [id number]
== END 2022-09-02 18:56 | disposition home or self-care (01) ==
LOC: ED 15:53
DX: S09.90XA Unspecified injury of head, initial encounter (principal); W18.11XA Fall from or off toilet without subsequent striking against object, initial encounter; I10 Essential (primary) hypertension
CPT/HCPCS: 36415; 70450; 72125; 80053; 85025; 93005; 96374; 96376; 99283; 99284; G0480; 80320

== ENCOUNTER 2023-08-05 10:35 | Emergency (ER) | payer MEDICARE ==
--- NOTE | 2023-08-05 11:35 | ED Physician Documentation ---
PD HPI HEADACHE - Stated complaint Stated Complaint: JARQUIN,BLURRY VZ - Chief complaint Chief Complaint: Neuro - History obtained from History obtained from: Patient - Additional information Additional information: He has a history of ruptured aneurysm status post clipping at [facility] in 2019. He presents today for headache. He has had worsening headaches for the last week and 1/2 to 2 weeks. Frontal severe headaches associate with nausea and 1 episode of vomiting this morning. He does state that it is similar to prior aneurysmal hemorrhage and that he is "overdue" to have his aneurysm checked. PD PAST MEDICAL HISTORY - Past Medical History Cardiovascular: Hypertension, Angina, Murmur Respiratory: None Neuro: Other Endocrine/Autoimmune: None GI: GERD, Hiatal hernia : None HEENT: Chronic hearing loss Psych: None Musculoskeletal: Osteoarthritis, Chronic back pain Derm: None - Past Surgical History Past Surgical History: Yes General: Colonoscopy Ortho: Knee replacement, Arthroscopic surgery, Spine surgery, Other Neuro: Craniotomy HEENT: Rhinoplasty - Present Medications Home Medications: Ambulatory Orders Medication Instructions Recorded Confirmed Acetaminophen [Tylenol] 325 mg PO Q6H PRN 10/17/12 08/05/23 Baclofen 10 mg PO BID 10/17/12 08/05/23 Omeprazole [PriLOSEC] 20 mg PO BID 10/17/12 08/05/23 oxyCODONE [Roxicodone] 10 mg PO Q4-6H PRN 10/17/12 08/05/23 Aspirin [Aspirin EC] 81 mg PO DAILY 05/15/20 08/05/23 Gabapentin [Neurontin] 200 mg PO TID 05/15/20 08/05/23 Pravastatin [Pravachol] 40 mg PO DAILY 05/15/20 08/05/23 Ibuprofen [Motrin] 800 mg PO TID 07/02/20 08/05/23 Amlodipine Besylate [Norvasc] 10 mg PO DAILY 08/05/23 08/05/23 DULoxetine [Cymbalta] 30 mg PO DAILY 08/05/23 08/05/23 Fluticasone Propionate [address] DAILY 08/05/23 08/05/23 Metoprolol Tartrate [Lopressor] 25 mg PO DAILY 08/05/23 08/05/23 Senna [Senokot] 17.2 mg PO DAILY 08/05/23 08/05/23 Sildenafil Citrate [Sildenafil] 20 mg PO DAILY 08/05/23 08/05/23 Testosterone Cypionate 1.5 ml IM .EVERY 2WEEKS 08/05/23 08/05/23 - Allergies Allergies/Adverse Reactions: Allergies Allergy/AdvReac Type Severity Reaction Status Date / Time hydromorphone [From Dilaudid] Allergy Unknown Verified 08/05/23 10:55 meperidine [From Demerol] Allergy Unknown Verified 08/05/23 10:55 - Social History Does the pt smoke?: No Smoking Status: Never smoker Does the pt drink ETOH?: Yes Does the pt have substance abuse?: No - Immunizations Immunizations are current?: No - POLST Patient has POLST: No PD ED PE NORMAL - Vitals Vital signs reviewed: Yes - General General: Alert and oriented X 3, Other (Very hard of hearing but in no distress) - HEENT HEENT: PERRL, EOMI, Other (Tender over both temples) - Neck Neck: Supple, no meningeal sign, No bony TTP - Cardiac Cardiac: RRR, No murmur - Respiratory Respiratory: No respiratory distress - Neuro Neuro: Alert and oriented X 3, No motor deficit, No sensory deficit, Normal speech Eye Opening: Spontaneous Motor: Obeys Commands Verbal: Oriented GCS Score: 15 - Psych Psych: Normal mood, Normal affect Results - Vitals Vitals: Vital Signs - 24 hr 08/05/23 08/05/23 08/05/23 10:53 11:55 13:00 Temperature 36.5 C Heart Rate 71 68 67 Respiratory 16 16 15 Rate Blood Pressure 155/89 H 132/94 H 172/107 H O2 Saturation 97 98 98 08/05/23 13:36 Temperature Heart Rate 62 Respiratory 18 Rate Blood Pressure 152/102 H O2 Saturation 97 Oxygen O2 Source Room air - Labs Labs: Laboratory Tests 08/05/23 08/05/23 08/05/23 11:44 11:44 11:44 WBC 12.5 H RBC 5.38 Hgb 15.0 Hct 47.5 MCV 88.3 MCH 27.9 MCHC 31.6 L RDW 17.9 H Plt Count 265 MPV 10.6 Neut # (Auto) 8.8 H Lymph # (Auto) 2.8 Gilmer # (Auto) 0.7 Eos # (Auto) 0.1 Baso # (Auto) 0.1 Absolute Nucleated RBC 0.00 Nucleated RBC % 0.0 ESR 1 PT 12.1 INR 1.1 Sodium Potassium Chloride Carbon Dioxide Anion Gap BUN Creatinine Estimated GFR (MDRD) Glucose Calcium Total Bilirubin AST ALT Alkaline Phosphatase C-Reactive Protein Total Protein Albumin Globulin Albumin/Globulin Ratio 08/05/23 11:44 WBC RBC Hgb Hct MCV MCH MCHC RDW Plt Count MPV Neut # (Auto) Lymph # (Auto) Gilmer # (Auto) Eos # (Auto) Baso # (Auto) Absolute Nucleated RBC Nucleated RBC % ESR PT INR Sodium 137 Potassium 3.8 Chloride 107 Carbon Dioxide 22 Anion Gap 8.0 BUN 20 Creatinine 1.1 Estimated GFR (MDRD) 66 L Glucose 119 H Calcium 9.2 Total Bilirubin 0.7 AST 12 ALT 18 Alkaline Phosphatase 69 C-Reactive Protein < 0.5 Total Protein 6.8 Albumin 4.2 Globulin 2.6 Albumin/Globulin Ratio 1.6 - Rads (name of study) CTA of the head/CT of the head Relevant Findings:: Final report received, EMP independent interpretation of test PD Medical Decision Making - ED course ED course: He has a history of aneurysm status post clipping and now with worsening headache. He does have chronic headaches though. He was treated with morphine with relief but it came back and retreated with morphine and Reglan, he does have some blurry vision and light sensitivity with it so may be migrainous. Of course we wanted to rule out recurrence of aneurysm and there is no evidence of this on CTA/normal CT. He had negative inflammatory markers suggestive against temporal arteritis/GCA. Departure - Departure Disposition: 01 Home, Self Care Clinical Impression: Headache Qualifiers: Headache type: unspecified Headache chronicity pattern: acute headache Intractability: not intractable Qualified Code(s): R51.9 - Headache, unspecified Condition: Good Record reviewed to determine appropriate education?: Yes Instructions: ED Cephalgia Unspecified Comments: CT angiography and plain CT of the head were without evidence of recurrent aneurysm nor bleeding which is of course good. You tell me that your neurosurgeons still recommend that you have formal angiography and follow-up, you can call [facility] as you are planning to arrange this. Do not drink or drive today. Return for new or worsening symptoms. Forms: PCP List
[2023-08-05] MEDS: ONDANSETRON 4 MG/2 ML VIAL IVP STA (11:47)
[2023-08-05 11:50] LABS: BASOPHILS # (AUTO) 0.1 10^3/uL (0.0-0.1); BASOPHILS % (AUTO) 0.6 %; EOSINOPHILS # (AUTO) 0.1 10^3/uL (0.0-0.7); EOSINOPHILS % (AUTO) 0.8 %; HCT - HEMATOCRIT 47.5 % (42.0-52.0); LYMPHOCYTES # (AUTO) 2.8 10^3/uL (1.5-3.5); LYMPHOCYTES % (AUTO) 22.6 %; MEAN CORPUSCULAR HEMOGLOBIN 27.9 pg (27.0-31.0); MEAN CORPUSCULAR HGB CONC 31.6 g/dL (32.0-36.0); MEAN CORPUSCULAR VOLUME 88.3 fL (80.0-94.0); MEAN PLATELET VOLUME 10.6 fL (7.4-11.4); MONOCYTES # (AUTO) 0.7 10^3/uL (0.0-1.0); MONOCYTES % (AUTO) 5.5 %; NEUTROPHILS # (AUTO) 8.8 10^3/uL (1.5-6.6); PLT - PLATELET COUNT 265 10^3/uL (130-450); RED BLOOD COUNT 5.38 10^6/uL (4.70-6.10); RED CELL DISTRIBUTION WIDTH 17.9 % (12.0-15.0); WHITE BLOOD COUNT 12.5 x10^3/uL (4.8-10.8)
[2023-08-05] MEDS: MORPHINE 2 MG/ML CARPUJECT IVP STA ×2 (11:53→13:45)
[2023-08-05 11:56] LABS: INR 1.1 (0.8-1.2); PT - PROTHROMBIN TIME 12.1 secs (9.9-12.6)
[2023-08-05 12:04] LABS: ALBUMIN 4.2 g/dL (3.2-5.5); ALBUMIN/GLOBULIN RATIO 1.6 (1.0-2.2); ALKALINE PHOSPHATASE 69 IU/L (42-121); ALT ALANINE AMINOTRANSFERASE 18 IU/L (10-60); AST ASPARTATE AMINOTRANSFERASE 12 IU/L (10-42); BILIRUBIN,TOTAL 0.7 mg/dL (0.2-1.0); BUN - BLOOD UREA NITROGEN 20 mg/dL (6-20); CALCIUM 9.2 mg/dL (8.5-10.3); CARBON DIOXIDE - CO2 22 mmol/L (21-32); CHLORIDE 107 mmol/L (101-111); CREATININE 1.1 mg/dL (0.6-1.3); CRP - C-REACTIVE PROTEIN < 0.5 mg/dL (<0.5); GFR - MDRD 66 (>89); GLUCOSE 119 mg/dL (74-104); POTASSIUM 3.8 mmol/L (3.5-4.5); SODIUM 137 mmol/L (135-145); TOTAL PROTEIN 6.8 g/dL (6.4-8.9)
[2023-08-05] MEDS ORDERED: iohexoL-300 100 ML VIAL ONE (12:40)
[2023-08-05] MEDS: iohexoL-300 100 ML VIAL IVP ONE (13:05)
--- NOTE | 2023-08-05 13:17 | CT Report ---
PROCEDURE: Head WO INDICATIONS: headache, hx aneurysm TECHNIQUE: Noncontrast 4.5 mm thick angled axial sections acquired from the foramen magnum to the vertex. For r adiation dose reduction, the following was used: automated exposure control, adjustment of mA and/or kV according to patient size. COMPARISON: CT 09/02/2022, 01/13/2022. FINDINGS: Image quality: Excellent. CSF spaces: Basal cisterns are patent. No extra-axial fluid collections. Ventricles are normal in size and shape. Brain: No midline shift. No intracranial masses or hemorrhage. Figueroa-white matter interface is norm al. Linear encephalomalacia of the right frontal lobe and left frontoparietal region. Surgical coils within the anterior frontal region. Skull and face: Calvarium and visualized facial bones are intact, without suspicious lesions. Prior craniotomy and julius holes. Sinuses: Visualized sinuses and mastoids are clear. IMPRESSION: No acute intracranial pathology. Reviewed by: Josue Moran MD on 08/05/2023 1:15 PM PDT Approved by: Josue Moran MD on 08/05/2023 1:15 PM PDT Station ID: [id number]
--- NOTE | 2023-08-05 13:21 | CT Report ---
PROCEDURE: CT Angio Head INDICATIONS: headache, hx aneurysm CONTRAST: 80ml omni 300 TECHNIQUE: After the administration of intravenous contrast, 1 mm thick sections acquired through the [place]. Postcontrast 4.5 mm thick sections then re-acquired from the foramen magnum to the vertex. 3-dimensional atkgrkm-vymtmbscf-asrekhtvyx (MIP) and/or volume rendering reformats were acquired of [facility] central intracranial vasculature. For radiation dose reduction, the following was used: automate d exposure control, adjustment of mA and/or kV according to patient size. COMPARISON: Same day head CT, CT 03/29/2021, 01/13/2022. FINDINGS: Image quality: Diagnostic. Anterior circulation: Intracranial internal carotid arteries are normal in size and flow. The flow within the paired anterior cerebral arteries is normal and symmetric. The flow within the middle cer ebral arteries is normal and symmetric. The anterior communicating artery is seen. No aneurysms are seen. Posterior circulation: Visualized portions of the vertebral arteries demonstrate normal caliber, and join to form a normal appearing basilar artery. Flow within the posterior cerebral arteries is norm al and symmetric. No aneurysms are seen. CSF spaces: Ventricles are normal in size and shape. Basal cisterns are patent. No extra-axial flu id collections. Brain: No midline shift. No intracranial bleeds or masses. Figueroa-white matter interface appears int act. Midline anterior embolization coils. Encephalomalacia the right frontal and left frontoparietal lobes. Skull and face: Calvarium and facial bones appear intact, without suspicious lesions. Craniotomy ant eriorly. Sinuses: Visualized sinuses and mastoids are clear. IMPRESSION: No significant intracranial arterial abnormality is seen. Reviewed by: Josue Moran MD on 08/05/2023 1:19 PM PDT Approved by: Josue Moran MD on 08/05/2023 1:19 PM PDT Station ID: [id number]
[2023-08-05] MEDS: METOCLOPRAMIDE 10 MG/2 ML VIAL IVP STA (13:44)
[2023-08-05 13:45] VITALS: BP 152/102; O2SAT 97
== END 2023-08-05 14:03 | disposition home or self-care (01) ==
LOC: ED 10:35
DX: R51.9 Headache, unspecified (principal); I10 Essential (primary) hypertension; I20.9 Angina pectoris, unspecified; I72.9 Aneurysm of unspecified site; Z79.82 Long term (current) use of aspirin; Z79.899 Other long term (current) drug therapy
CPT/HCPCS: 36415; 70450; 70496; 80053; 85025; 85610; 85651; 86140; 96374; 96375; 96376; 99284; 99285; J2765; Q9967